=== PATIENT | male | born 1960 | race Caucasian/White ===

== ENCOUNTER 2017-09-11 16:40 | Inpatient (IN) | payer MEDICARE, MEDICAID, SELFPAY ==
[2017-09-11] VITALS (10 sets, daily range): BP systolic 90–116; BP diastolic 31–98; PULSE 123–157; RESP 16–21; TEMP 36.3–36.6; O2SAT 95–99; BMI 37.0; BMI 37.5
--- NOTE | 2017-09-11 16:58 | EKG12_ITS ---
Test Reason : GEN ILLNESS Blood Pressure : / mmHG Vent. Rate : 157 BPM Atrial Rate : 088 BPM P-R Int : 000 ms QRS Dur : 090 ms QT Int : 316 ms P-R-T Axes : 000 -55 030 degrees QTc Int : 510 ms Supraventricular tachycardia Left axis deviation Septal infarct , age undetermined Inferior infarct , age undetermined Abnormal ECG Confirmed by YIMI LANG, DACIA ([id number]), visual effects editor SHIRA HINKLE ([id number]) on 09/13/2017 3:42:38 PM Referred By: SOHAN Confirmed By:DACIA GELLER MD
--- NOTE | 2017-09-11 16:58 | RAD_ITS ---
STUDY: X-RAY CHEST REASON FOR EXAM: Male, 57 years old. Dyspnea. TECHNIQUE: Single AP portable view of the chest. COMPARISON: None. FINDINGS: There is a left jugular Port-A-Cath with its tip at the atriocaval junction. The lungs well-expanded. There is no acute infiltrate or mass. There is linear densities in the right upper lobe with associated surgical clips suggesting prior lung surgery. There is no demonstrated pleural abnormality. Normal size heart. Normal mediastinum and gabe. Normal visualized pulmonary arteries. Normal visualized aortic arch and descending thoracic aorta. The thoracic spine is obscured by the mediastinum. Normal visualized ribs, clavicles, and shoulders. There is no demonstrated abnormality of the visualized soft tissue structures of the upper abdomen. RAD/Chest 1 View (Portable) IMPRESSION: 1. Evidence of prior right upper lobe lung surgery. 2. No evidence of acute pulmonary disease. 3. Left jugular Port-A-Cath. Electronically Signed: Jagjit Allen DO at 17:36 EDT Tel [phone], Service support ,
--- NOTE | 2017-09-11 17:04 | ED.DCSUM_ITS ---
- ER Visit Summary Date of Service: 09/11/17 Chief Complaint: Elevated heart rate, left lower extremity cellulitis History of Present Illness: The patient is a 57 M presenting with redness, swelling left lower extremity. This has been ongoing for the past 2 days. He was seen by Dr. Sahu today and was sent to the ED for further evaluation. His last chemotherapy was August 30, 2017. 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 He denies fever. Denies chest pain or shortness of breath. His heart rate has been elevated. No recent hospital admissions. He has a history of chronic left lower extremity DVT. He had a previous IVC filter which he states has been removed. Physical Examination: HR 155. BP 99/69, RR 16. Patient is afebrile. Alert no acute distress. Pulse ox 97% on room air HEENT exam is unremarkable. Neck is supple. Lungs are clear and equal bilaterally. Heart is regular and tachycardic Abdomen is soft nontender nondistended. Extremities left calf swelling and erythema, palpable DP pulse Skin is warm and dry. No focal neurologic deficit. Remainder of exam is unremarkable. Emergency Department Course and Treatment: Patient was given IV fluids. CBC shows a white count of 15.5, hemoglobin 9.1. Chemistries show sodium 129, glucose 207. Troponin 0.06. Lactic acid is 3.0. Chest x-ray shows no acute process. EKG is sinus tachycardia 157. Heart rate improved to 120s with IV fluids. Ultrasound of the left lower extremity shows diffuse DVT. Study is limited secondary to groin mass. CTA chest was obtained and shows no evidence of PE. He was given Ancef IV and Lovenox subcutaneously. Discussed with the hospitalist for admission. Disposition: Admission Impression: Severe sepsis, left lower extremely cellulitis, left lower extremity DVT, history of liposarcoma This note was generated with Chatterous dictation software. It may contain incorrect words, spelling, and punctuation that were not noted in review of the chart prior to signing ED Disposition - Plan for ED Patient: Chief Complaint: General Illness Referrals: Dru Gao [Primary Care Provider] -
--- NOTE | 2017-09-11 17:07 | NURSING ---
NO OLD EKGS
[2017-09-11] MEDS: 0.9% Normal Saline 1,000 ML 1000 ML IV (17:15)
[2017-09-11 17:30] LABS: Hematocrit 27.8 % (40-54); Hemoglobin 9.1 g/dl (13.0-16.5); Mean Corp Hgb Conc 32.7 g/gl (32-36); Mean Corpuscular Volume 82.5 fL (80-94); Mean Platelet Vol. 10.4 fl (6.2-12.0); Platelet Count 198 K/mm3 (150-450); RBC Distribution Width SD 47.2 fl (35.1-43.9); Red Blood Count 3.37 M/mm3 (4.6-6.2); White Blood Count 15.5 K/mm3 (4.4-11.0)
[2017-09-11 17:32] LABS: Differential Indicated MANUAL DIFF; POSITIVE COUNT YES; POSITIVE DIFFERENTIAL YES; POSITIVE MORPHOLOGY YES
[2017-09-11 17:46] LABS: Anion Gap 9 (5-15); BUN 13 mg/dL (7-18); BUN/Creat Ratio 11.4 RATIO (10-20); Calcium,Total 8.3 mg/dL (8.5-10.1); Chloride 93 mmol/L (98-107); Creatinine, Serum 1.14 mg/dL (0.70-1.30); EST Glomerular Filtration Rate 70 mL/min (>60); Est Glom Filt Rate - Afr Amer 85 mL/min (>60); Estimated Creatinine Clearance 72.93 ml/min; Glucose 207 mg/dL (74-106); Potassium 3.8 mmol/L (3.5-5.1); Sodium Level 129 mmol/L (136-145)
--- NOTE | 2017-09-11 17:47 | US_ITS ---
US Venous Duplex LE Bilat Complete INDICATION: LT LEG REDNESS AND SWELLING COMPARISON: None TECHNIQUE: Ultrasonographic grayscale, Doppler and duplex investigation of the venous structures of the bilateral lower extremities. Doppler waveform analysis. FINDINGS: The examination is markedly limited due to severe leg edema and large left inguinal tumor. Right lower extremity: There is no evidence of thrombus and normal flow and compressibility of the right common femoral vein, the superficial femoral vein, the right popliteal vein, posterior tibial vein and peroneal vein. Left lower extremity: A large tumor is seen in the groin and there is noncompressibility of the left common femoral vein. The greater saphenous vein at the junction is not visualized. The deep femoral vein is not visualized. There is noncompressibility of the proximal and mid superficial femoral vein and the distal superficial femoral vein is not visualized. There is partial compressibility of the left trapezial vein and posterior tibial vein. The peroneal vein is not visualized. US/Venous Duplex Imag/Erik Extrem IMPRESSION: Examination of the left lower extremity is markedly limited due to severe leg edema and a large tumor in the left groin. There is partial compressibility of the left common femoral vein, proximal and mid femoral vein and posterior tibial vein and noncompressibility of the left PT of vein. The distal superficial femoral vein and peroneal vein were not visualized. No evidence of DVT at the right lower extremity. at 1901 Reported and signed by: Melina Rivers MD N.B. : The above information has been verbally conveyed by Melina Rivers MD to Dr Matilde Vitale, Referring Physician, on 09/11/2017 20:34:28 (ET). Electronically Signed: Melina Rivers MD at 19:00 EDT Tel , Service support , N.B. : The above information has been verbally conveyed by Melina Rivers MD to Dr Matilde Vitale, Referring Physician, on 09/11/2017 20:34:28 (ET).
[2017-09-11 18:19] LABS: Lymphocyte 2 % (19-41); Metamyelocyte 4 % (0-1); Monocyte 7 % (0-10); Myelocyte 4 (0-0); Neutrophil-Band 5 % (0-5); Neutrophil-Segmented 78 % (47-70); Total Cells Counted 100 (MANUAL DIFF)
[2017-09-11 18:24] LABS: Absolute Lymphocyte Count 0.31 X10^3/ul (0.83-4.51); Absolute Neutrophil Count 12.8 X10^3/uL (2.0-7.7)
[2017-09-11 18:25] LABS: Anisocytosis RARE; Platelet Estimate ADEQUATE (ADEQ)
[2017-09-11] MEDS: 0.9% Normal Saline 1,000 ML 999 ML IV ×2 (18:25→19:58)
--- NOTE | 2017-09-11 18:30 | CT_ITS ---
CTA Chest WO/W Contrast INDICATION: SENT BY ONCOLOGIST DUE TO BEING TACHY, WEAK, SWELLING L LEG AND REDNESS, CURRENT CHEMO FOR LIPOSARCOMA-LAST CHEMO ON 08-30-17, PT HAS POWER PORT, DIAB COMPARISON: None TECHNIQUE: High resolution axial CT imaging of the chest during intravenous contrast administration, CTA protocol. Multiplanar and MIP 3D reformatted images. 100 mL of Isovue-370 were given intraveniously. Radiation dose optimization technique applied. FINDINGS: There is no evidence of pulmonary arterial filling defect to suggest PE. Aortic arch is unremarkable. The heart size is at the upper limits of normal. There is scarring at the right upper lobe with architectural distortion. Pulmonary micronodules are seen scattered throughout both lungs, measuring 1 cm at the left lung apex, 5 mm in the right lower lobe superiorly, 5 mm at the right lower lobe at the lung base, and 8 mm in the left lower lobe posteriorly and 5 mm in the left posterior costophrenic angle. Findings are concerning for pulmonary metastatic disease. There is no evidence of pneumonia or pleural effusion. There is no evidence of bulky mediastinal or hilar lymphadenopathy. Visualized portions of the upper abdomen demonstrate mild nodular contour of the liver. The osseous structures demonstrate degenerative changes of the thoracic spine with anterior bridging osteophytes. Inferior endplate compression deformity of T12 is noted. No lytic or sclerotic lesion is seen. CT/CTA Chest W/WO Contrast IMPRESSION: Bilateral pulmonary micronodules as detailed above, concerning for pulmonary metastatic disease. No evidence of PE or aortic dissection. No evidence of pneumonia. Right upper lobe scarring. Inferior endplate compression deformity of T12, appears chronic. at 1939 Reported and signed by: Melina Rivers MD Electronically Signed: Melina Rivers MD at 19:38 EDT Tel , Service support ,
[2017-09-11 19:29] LABS: Bacteria 0 SEEN /hpf (None Seen); Mucous, Urine 0 SEEN /hpf (<or=2+); Red Blood Cells-Urine 0 SEEN /hpf (0-5)
[2017-09-11] MEDS: Cefazolin 1 GM/50 ML BAG IV (19:58)
[2017-09-11] MEDS: Enoxaparin 120 MG/0.8 ML Syringe SC (19:59)
[2017-09-11 20:03] LABS: Color, Urine Amber (Yellow); Glucose, Dipstick Normal (Normal); Ketone-Dipstick Negative (Negative); Leukocyte Esterase-Dipstick 25 /ul (Negative); Nitrite-Dipstick Negative (Negative); Occult Blood-Urine 10 /ul (Negative); Protein-Dipstick 30 mg/dl (Negative); Specific Gravity, Urine 1.015 (1.002-1.030); Urine Clarity Clear (Clear); Urine Urobilinogen 4 mg/dl (Normal)
[2017-09-11 20:07] LABS: Urine Bilirubin Dipstick 1 mg/dL (Negative)
[2017-09-11 20:17] LABS: Hyaline Cast 10-25 SEEN /lpf (0-5); Squamous Epithelial Cells - UA 0-5 SEEN /hpf (0-5); White Blood Cells 0-5 SEEN /hpf (0-5)
--- NOTE | 2017-09-11 20:39 | PCM.HP.STD ---
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 The patient is a 57 year old M with past medical history as mentioned above who was referred to the emergency department for evaluation for elevated heart rate and left leg cellulitis by Dr. Sahu after he was seen at his office today for preparation for chemotherapy for undifferentiated liposarcoma of the left groin. The patient stated that his left leg started to swell up 2 days ago, initially started as small red spot with minimal swelling, progressed over the last couple of days very quick to involve the whole left leg. He denied left leg pain. He denies fever or chills. He denied chest pain, palpitation, shortness of breath, dizziness or lightheadedness. 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 He has a history of type 2 diabetes mellitus and he has been on metformin, no hemoglobin A1c available discharge. He had a recent history of extensive DVT of the left lower extremity and he has been on Lovenox shots twice daily. In the emergency department, patient was afebrile, heart rate was in the 150s and yet. To be in sinus tachycardia. Blood pressure was borderline but slightly improved after loss of IV fluids. His routine blood work is remarkable for leukocytosis, hemoglobin of 9.1 g/dL, sodium of 129. His lactic acid was 3. Troponin was negative. Urinalysis revealed no evidence of acute cystitis. EKG revealed sinus tachycardia with heart rate of 150s. X-ray showed no acute infiltrate, consolidation or effusion. CTA of the chest revealed bilateral pulmonary micronodules consistent with metastatic lung disease without evidence of PE or dissection. He is being admitted for severe sepsis secondary to acute cellulitis of the left leg. Past Medical History Past Medical History (Chronic Problems): Chronic Problems Chronic anemia (Chronic) Type 2 diabetes mellitus (Chronic) Deep vein thrombosis (DVT) of left lower extremity (Chronic) Liposarcoma of the left groin (Chronic) Allergies Iodinated Contrast- Oral and IV Dye [DYEE] Adverse Reaction (Verified 09/11/17 16:42) Nausea Home Medications: Ambulatory Orders Medication Instructions Recorded Cholecalciferol (Vitamin D3) 1,000 unit PO DAILY 09/11/17 [Vitamin D3] Duloxetine Hcl [Cymbalta] 90 mg PO DAILY 09/11/17 Enoxaparin Sodium [Lovenox] 120 mg SQ Q12H 09/11/17 Gabapentin [Neurontin] 600 mg PO TIDCM 09/11/17 Loratadine [Claritin] 10 mg PO DAILY PRN PRN 09/11/17 Metformin HCl [Glucophage Xr] 750 mg PO DAILY 09/11/17 Methadone HCl [Dolophine] 7.5 mg PO Q12H PRN 09/11/17 Ondansetron [Zofran] 8 mg PO Q8H PRN PRN 09/11/17 Oxycodone [Oxyir] 10 mg PO Q4H PRN PRN 09/11/17 Surgical History: - - Rotator cuff surgery. Biopsy of the left groin mass. Psychiatric History: Depression Smoking Status: Former smoker Alcohol: None Drugs: None - *Family History Maternal History Items: No pertinent history Paternal History Items: No pertinent history Review of Systems Constitutional: Denies: Anorexia, Chills, Fever, Weakness Eyes: Denies: Blurred vision, Double vision, Drainage, Redness HEENT: Denies: Difficulty Hearing, Ear Pain, Eye Pain, Nasal Congestion, Sore Throat Cardiovascular: Denies: Chest Pain, Chest Pressure, Chest Tightness, Heaviness, Light Headedness, Palpitations, Syncope Respiratory: Denies: Cough, Pleuritic Pain, Shortness of Breath, Sputum production, Wheezing Gastrointestinal: Denies: Abdominal Pain, Constipation, Diarrhea, Nausea, Vomiting Genitourinary: Denies: Dysuria, Frequency, Hematuria Musculoskeletal: Denies: Arm Pain, Back Pain, Foot Pain Skin: Reports: -. Denies: Dryness, Rash Neurological: Denies: Balance problems, Double vision, Change in Speech, Focal weakness, Headaches, Incoordination Psychiatric: Reports: Depression. Denies: Anxiety Endocrine: Denies: Change in Body Habitus, Polydipsia VTE Information - Inpt Only VTE Present on Admission: No VTE Mechan Device Prophylaxis: None VTE Pharm Prophylaxis ordered?: No Patient Problems: Active and Suspected Problems Tachycardia (Acute) Severe sepsis (Acute) Left leg cellulitis (Acute) - Physical Exam General: Alert, Oriented x3, Cooperative, No apparent distress HEENT: Atraumatic, PERRLA, EOMI Oral: Moist Mucosa, No Gingival or Mucosal Lesions/ Ulcerations Neck: Supple, No JVD, Negative Carotid Bruits, Trachea Midline, Thyroid Normal Size and Texture Lungs: Clear to auscultation, No rhonchi, No wheeze, No rales, Diminished Cardiovascular: Regular rate, Regular Rhythm, Normal S1, Normal S2, PMI Normal, Tachycardic Abdomen: Bowel Sounds Present, Soft, Non Tender, Non-Distended, No Hepato-splenomegaly, Obese Extremities: No clubbing, No cyanosis, Edema - Trace edema., - - Left leg: Erythema and swelling from just below left knee down to the left ankle, hot to palpation. Nontender. Skin: - - Area of superficial abrasion on the left groin measuring about 4 x 9 cm, foul-smelling. Lymphatic: No Cervical, Supraclavicular, or Inguinal Adenopathy Neurological: Cranial nerves II-XII grossly intact, Motor Exam 5/5 strength throughout Psych/Mental Status: Normal Affect, Appropriate, Alert and oriented to time, place, person, mood and affect Vital Signs Temp Pulse Resp BP Pulse Ox 97.3 F L 141 H 21 H 116/98 H 97 09/11/17 16:42 09/11/17 19:47 09/11/17 19:47 09/11/17 19:47 09/11/17 19:47 Laboratory Tests 09/11/17 09/11/17 09/11/17 Range/Units 19:20 17:12 17:12 WBC (4.4-11.0) K/mm3 RBC (4.6-6.2) M/mm3 Hgb (13.0-16.5) g/dl Hct (40-54) % MCV (80-94) fL MCH (27.0-32.0) pg MCHC (32-36) g/gl RDW (11.6-14.6) % RDW Differential (35.1-43.9) fl Plt Count (150-450) K/mm3 MPV (6.2-12.0) fl Neut % (Auto) Absolute Neuts (auto) (2.0-7.7) X10^3/uL Absolute Lymphs (auto) (0.83-4.51) X10^3/ul Total Counted (MANUAL DIFF) Neutrophils % (Manual) (47-70) % Band Neutrophils % (0-5) % Lymphocytes % (Manual) (19-41) % Monocytes % (Manual) (0-10) % Metamyelocytes % (0-1) % Myelocytes % (0-0) Differential Comment Diff Path Review Platelet Estimate (ADEQ) Anisocytosis Sodium 129 L (136-145) mmol/L Potassium 3.8 (3.5-5.1) mmol/L Chloride 93 L (98-107) mmol/L Carbon Dioxide 27.0 (21.0-32.0) mmol/L Anion Gap 9 (5-15) BUN 13 (7-18) mg/dL Creatinine 1.14 (0.70-1.30) mg/dL Estim Creat Clear Calc 72.93 ml/min Est GFR (MDRD) Af Amer 85 (>60) mL/min Est GFR (MDRD) Non-Af 70 (>60) mL/min BUN/Creatinine Ratio 11.4 (10-20) RATIO Glucose 207 H (74-106) mg/dL Lactic Acid 3.0 H (0.4-2.0) mmol/L Calcium 8.3 L (8.5-10.1) mg/dL Troponin I 0.06 (<0.06) ng/mL Urine Color Shruthi (Yellow) Urine Clarity Clear (Clear) Urine pH 6.0 (5.0 - 8.0) Ur Specific [place] 1.015 (1.002-1.030) Urine Protein 30 H (Negative) mg/dl Urine Glucose (UA) Normal (Normal) mg/dl Urine Ketones Negative (Negative) mg/dl Urine Occult Blood 10 H (Negative) /ul Urine Nitrite Negative (Negative) Urine Bilirubin 1 H (Negative) mg/dL Urine Urobilinogen 4 H (Normal) mg/dl Ur Leukocyte Esterase 25 H (Negative) /ul Urine RBC 0 SEEN (0-5) /hpf Urine WBC 0-5 SEEN (0-5) /hpf Ur Squamous Epith Cells 0-5 SEEN (0-5) /hpf Urine Bacteria 0 SEEN (None Seen) /hpf Hyaline Casts 10-25 SEEN (0-5) /lpf Urine Mucus 0 SEEN (<or=2+) /hpf 09/11/17 Range/Units 17:12 WBC 15.5 H (4.4-11.0) K/mm3 RBC 3.37 L (4.6-6.2) M/mm3 Hgb 9.1 L (13.0-16.5) g/dl Hct 27.8 L (40-54) % MCV 82.5 (80-94) fL MCH 27.0 (27.0-32.0) pg MCHC 32.7 (32-36) g/gl RDW 16.0 H (11.6-14.6) % RDW Differential 47.2 H (35.1-43.9) fl Plt Count 198 (150-450) K/mm3 MPV 10.4 (6.2-12.0) fl Neut % (Auto) Not Reportable Absolute Neuts (auto) 12.8 H (2.0-7.7) X10^3/uL Absolute Lymphs (auto) 0.31 L (0.83-4.51) X10^3/ul Total Counted 100 (MANUAL DIFF) Neutrophils % (Manual) 78 H (47-70) % Band Neutrophils % 5 (0-5) % Lymphocytes % (Manual) 2 L (19-41) % Monocytes % (Manual) 7 (0-10) % Metamyelocytes % 4 H (0-1) % Myelocytes % 4 H (0-0) Differential Comment SEE COMMENT Diff Path Review May foll Platelet Estimate ADEQUATE (ADEQ) Anisocytosis RARE Sodium (136-145) mmol/L Potassium (3.5-5.1) mmol/L Chloride (98-107) mmol/L Carbon Dioxide (21.0-32.0) mmol/L Anion Gap (5-15) BUN (7-18) mg/dL Creatinine (0.70-1.30) mg/dL Estim Creat Clear Calc ml/min Est GFR (MDRD) Af Amer (>60) mL/min Est GFR (MDRD) Non-Af (>60) mL/min BUN/Creatinine Ratio (10-20) RATIO Glucose (74-106) mg/dL Lactic Acid (0.4-2.0) mmol/L Calcium (8.5-10.1) mg/dL Troponin I (<0.06) ng/mL Urine Color (Yellow) Urine Clarity (Clear) Urine pH (5.0 - 8.0) Ur Specific [place] (1.002-1.030) Urine Protein (Negative) mg/dl Urine Glucose (UA) (Normal) mg/dl Urine Ketones (Negative) mg/dl Urine Occult Blood (Negative) /ul Urine Nitrite (Negative) Urine Bilirubin (Negative) mg/dL Urine Urobilinogen (Normal) mg/dl Ur Leukocyte Esterase (Negative) /ul Urine RBC (0-5) /hpf Urine WBC (0-5) /hpf Ur Squamous Epith Cells (0-5) /hpf Urine Bacteria (None Seen) /hpf Hyaline Casts (0-5) /lpf Urine Mucus (<or=2+) /hpf Clinical Impression(s) from Imaging Studies Chest X-Ray 09/11/17 16:58 IMPRESSION: 1. Evidence of prior right upper lobe lung surgery. 2. No evidence of acute pulmonary disease. 3. Left jugular Port-A-Cath. Electronically Signed: Jagjit Allen DO at 17:36 EDT Tel [phone], Service support , Venous Duplex 09/11/17 17:47 IMPRESSION: Examination of the left lower extremity is markedly limited due to severe leg edema and a large tumor in the left groin. There is partial compressibility of the left common femoral vein, proximal and mid femoral vein and posterior tibial vein and noncompressibility of the left PT of vein. The distal superficial femoral vein and peroneal vein were not visualized. No evidence of DVT at the right lower extremity. at 1901 Reported and signed by: Melina Rivers MD N.B. : The above information has been verbally conveyed by Melina Rivers MD to Dr Matilde Vitale, Referring Physician, on 09/11/2017 20:34:28 (ET). Electronically Signed: Melina Rivers MD at 19:00 EDT Tel , Service support , N.B. : The above information has been verbally conveyed by Melina Rivers MD to Dr Matilde Vitale, Referring Physician, on 09/11/2017 20:34:28 (ET). Chest CTA 09/11/17 18:30 IMPRESSION: Bilateral pulmonary micronodules as detailed above, concerning for pulmonary metastatic disease. No evidence of PE or aortic dissection. No evidence of pneumonia. Right upper lobe scarring. Inferior endplate compression deformity of T12, appears chronic. at 1939 Reported and signed by: Melina Rivers MD Electronically Signed: Melina Rivers MD at 19:38 EDT Tel , Service support , Assessment/Plan Active and Suspected Problems Tachycardia (Acute) Severe sepsis (Acute) Left leg cellulitis (Acute) This is a 57 years old male patient referred to the emergency department by his oncologist because of left leg cellulitis and elevated heart rate, found to have severe sepsis secondary to acute cellulitis of the left leg. #1 acute left leg cellulitis/severe sepsis: Patient is tachycardic, blood pressure stable, afebrile. Lactic acid is elevated. Blood culture sent, received 1 dose of IV cefazolin. Plan: Admit to PCU, cardiac monitoring, continue IV fluids, urine culture, wound culture from the left groin, start IV Unasyn, MRSA nasal screening, repeat lactic acid in 3 hours, repeat CBC and BMP tomorrow morning, PT OT evaluation and treatment. #2 tachycardia: On EKG, it seemed to be sinus tachycardia. Heart rate slightly improved after bolus of IV fluids. Plan: Cardiac monitoring, continue IV fluids, repeat EKG tomorrow morning, TSH. #3 hyponatremia: It is not clear if this is acute or chronic. Could be due to SIADH secondary to liposarcoma. Plan for IV fluids with normal saline, serum was negative, urine was negative, urine sodium, urine chloride, repeat BMP tomorrow morning. 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 He is following up with Dr. Sahu. #5 chronic anemia: Secondary to cancer and chemotherapy. Hemoglobin is 9.1 g/dL, stable, no evidences of active bleeding. No indication for transfusion. #6 type 2 diabetes mellitus: ADA diet, Accu-Cheks, insulin sliding scale, hold metformin. #7 history of extensive left lower extremity DVT: Continue therapeutic Lovenox twice daily. #8 DVT prophylaxis: He will be on therapeutic Lovenox twice daily. This note was generated with [employer] dictation software. It may contain incorrect words, spelling, and punctuation that were not noted in checking the note before signing. Code Visit Inpatient E&M: 82376 Init Hosp L3
--- NOTE | 2017-09-11 20:48 | HP.PCM_ITS ---
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 The patient is a 57 year old M with past medical history as mentioned above who was referred to the emergency department for evaluation for elevated heart rate and left leg cellulitis by Dr. Sahu after he was seen at his office today for preparation for chemotherapy for undifferentiated liposarcoma of the left groin. The patient stated that his left leg started to swell up 2 days ago, initially started as small red spot with minimal swelling, progressed over the last couple of days very quick to involve the whole left leg. He denied left leg pain. He denies fever or chills. He denied chest pain, palpitation, shortness of breath, dizziness or lightheadedness. 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 He has a history of type 2 diabetes mellitus and he has been on metformin, no hemoglobin A1c available discharge. He had a recent history of extensive DVT of the left lower extremity and he has been on Lovenox shots twice daily. In the emergency department, patient was afebrile, heart rate was in the 150s and yet. To be in sinus tachycardia. Blood pressure was borderline but slightly improved after loss of IV fluids. His routine blood work is remarkable for leukocytosis, hemoglobin of 9.1 g/dL, sodium of 129. His lactic acid was 3. Troponin was negative. Urinalysis revealed no evidence of acute cystitis. EKG revealed sinus tachycardia with heart rate of 150s. X-ray showed no acute infiltrate, consolidation or effusion. CTA of the chest revealed bilateral pulmonary micronodules consistent with metastatic lung disease without evidence of PE or dissection. He is being admitted for severe sepsis secondary to acute cellulitis of the left leg. Past Medical History Past Medical History (Chronic Problems): Chronic Problems Chronic anemia (Chronic) Type 2 diabetes mellitus (Chronic) Deep vein thrombosis (DVT) of left lower extremity (Chronic) Liposarcoma of the left groin (Chronic) Allergies Iodinated Contrast- Oral and IV Dye [DYEE] Adverse Reaction (Verified 09/11/17 16:42) Nausea Home Medications: Ambulatory Orders Medication Instructions Recorded Cholecalciferol (Vitamin D3) 1,000 unit PO DAILY 09/11/17 [Vitamin D3] Duloxetine Hcl [Cymbalta] 90 mg PO DAILY 09/11/17 Enoxaparin Sodium [Lovenox] 120 mg SQ Q12H 09/11/17 Gabapentin [Neurontin] 600 mg PO TIDCM 09/11/17 Loratadine [Claritin] 10 mg PO DAILY PRN PRN 09/11/17 Metformin HCl [Glucophage Xr] 750 mg PO DAILY 09/11/17 Methadone HCl [Dolophine] 7.5 mg PO Q12H PRN 09/11/17 Ondansetron [Zofran] 8 mg PO Q8H PRN PRN 09/11/17 Oxycodone [Oxyir] 10 mg PO Q4H PRN PRN 09/11/17 Surgical History: - - Rotator cuff surgery. Biopsy of the left groin mass. Psychiatric History: Depression Smoking Status: Former smoker Alcohol: None Drugs: None - *Family History Maternal History Items: No pertinent history Paternal History Items: No pertinent history Review of Systems Constitutional: Denies: Anorexia, Chills, Fever, Weakness Eyes: Denies: Blurred vision, Double vision, Drainage, Redness HEENT: Denies: Difficulty Hearing, Ear Pain, Eye Pain, Nasal Congestion, Sore Throat Cardiovascular: Denies: Chest Pain, Chest Pressure, Chest Tightness, Heaviness, Light Headedness, Palpitations, Syncope Respiratory: Denies: Cough, Pleuritic Pain, Shortness of Breath, Sputum production, Wheezing Gastrointestinal: Denies: Abdominal Pain, Constipation, Diarrhea, Nausea, Vomiting Genitourinary: Denies: Dysuria, Frequency, Hematuria Musculoskeletal: Denies: Arm Pain, Back Pain, Foot Pain Skin: Reports: -. Denies: Dryness, Rash Neurological: Denies: Balance problems, Double vision, Change in Speech, Focal weakness, Headaches, Incoordination Psychiatric: Reports: Depression. Denies: Anxiety Endocrine: Denies: Change in Body Habitus, Polydipsia VTE Information - Inpt Only VTE Present on Admission: No VTE Mechan Device Prophylaxis: None VTE Pharm Prophylaxis ordered?: No Patient Problems: Active and Suspected Problems Tachycardia (Acute) Severe sepsis (Acute) Left leg cellulitis (Acute) - Physical Exam General: Alert, Oriented x3, Cooperative, No apparent distress HEENT: Atraumatic, PERRLA, EOMI Oral: Moist Mucosa, No Gingival or Mucosal Lesions/ Ulcerations Neck: Supple, No JVD, Negative Carotid Bruits, Trachea Midline, Thyroid Normal Size and Texture Lungs: Clear to auscultation, No rhonchi, No wheeze, No rales, Diminished Cardiovascular: Regular rate, Regular Rhythm, Normal S1, Normal S2, PMI Normal, Tachycardic Abdomen: Bowel Sounds Present, Soft, Non Tender, Non-Distended, No Hepato- splenomegaly, Obese Extremities: No clubbing, No cyanosis, Edema - Trace edema., - - Left leg: Erythema and swelling from just below left knee down to the left ankle, hot to palpation. Nontender. Skin: - - Area of superficial abrasion on the left groin measuring about 4 x 9 cm, foul-smelling. Lymphatic: No Cervical, Supraclavicular, or Inguinal Adenopathy Neurological: Cranial nerves II-XII grossly intact, Motor Exam 5/5 strength throughout Psych/Mental Status: Normal Affect, Appropriate, Alert and oriented to time, place, person, mood and affect Vital Signs Temp Pulse Resp BP Pulse Ox 97.3 F L 141 H 21 H 116/98 H 97 09/11/17 16:42 09/11/17 19:47 09/11/17 19:47 09/11/17 19:47 09/11/17 19:47 Laboratory Tests 3 09/11/17 09/11/17 09/11/17 Range/Units 19:20 17:12 17:12 WBC (4.4-11.0) K/mm3 RBC (4.6-6.2) M/mm3 Hgb (13.0-16.5) g/dl Hct (40-54) % MCV (80-94) fL MCH (27.0-32.0) pg MCHC (32-36) g/gl RDW (11.6-14.6) % RDW Differential (35.1-43.9) fl Plt Count (150-450) K/mm3 MPV (6.2-12.0) fl Neut % (Auto) Absolute Neuts (auto) (2.0-7.7) X10^3/uL Absolute Lymphs (auto) (0.83-4.51) X10^3/ul Total Counted (MANUAL DIFF) Neutrophils % (Manual) (47-70) % Band Neutrophils % (0-5) % Lymphocytes % (Manual) (19-41) % Monocytes % (Manual) (0-10) % Metamyelocytes % (0-1) % Myelocytes % (0-0) Differential Comment Diff Path Review Platelet Estimate (ADEQ) Anisocytosis Sodium 129 L (136-145) mmol/L Potassium 3.8 (3.5-5.1) mmol/L Chloride 93 L (98-107) mmol/L Carbon Dioxide 27.0 (21.0-32.0) mmol/L Anion Gap 9 (5-15) BUN 13 (7-18) mg/dL Creatinine 1.14 (0.70-1.30) mg/dL Estim Creat Clear Calc 72.93 ml/min Est GFR (MDRD) Af Amer 85 (>60) mL/min Est GFR (MDRD) Non-Af 70 (>60) mL/min BUN/Creatinine Ratio 11.4 (10-20) RATIO Glucose 207 H (74-106) mg/dL Lactic Acid 3.0 H (0.4-2.0) mmol/L Calcium 8.3 L (8.5-10.1) mg/dL Troponin I 0.06 (<0.06) ng/mL Urine Color Shruthi (Yellow) Urine Clarity Clear (Clear) Urine pH 6.0 (5.0 - 8.0) Ur Specific Bigfoot 1.015 (1.002-1.030) Urine Protein 30 H (Negative) mg/dl Urine Glucose (UA) Normal (Normal) mg/dl Urine Ketones Negative (Negative) mg/dl Urine Occult Blood 10 H (Negative) /ul Urine Nitrite Negative (Negative) Urine Bilirubin 1 H (Negative) mg/dL Urine Urobilinogen 4 H (Normal) mg/dl Ur Leukocyte Esterase 25 H (Negative) /ul Urine RBC 0 SEEN (0-5) /hpf Urine WBC 0-5 SEEN (0-5) /hpf Ur Squamous Epith Cells 0-5 SEEN (0-5) /hpf Urine Bacteria 0 SEEN (None Seen) /hpf Hyaline Casts 10-25 SEEN (0-5) /lpf Urine Mucus 0 SEEN (<or=2+) /hpf 3 /06/30 Range/Units 17:12 WBC 15.5 H (4.4-11.0) K/mm3 RBC 3.37 L (4.6-6.2) M/mm3 Hgb 9.1 L (13.0-16.5) g/dl Hct 27.8 L (40-54) % MCV 82.5 (80-94) fL MCH 27.0 (27.0-32.0) pg MCHC 32.7 (32-36) g/gl RDW 16.0 H (11.6-14.6) % RDW Differential 47.2 H (35.1-43.9) fl Plt Count 198 (150-450) K/mm3 MPV 10.4 (6.2-12.0) fl Neut % (Auto) Not Reportable Absolute Neuts (auto) 12.8 H (2.0-7.7) X10^3/uL Absolute Lymphs (auto) 0.31 L (0.83-4.51) X10^3/ul Total Counted 100 (MANUAL DIFF) Neutrophils % (Manual) 78 H (47-70) % Band Neutrophils % 5 (0-5) % Lymphocytes % (Manual) 2 L (19-41) % Monocytes % (Manual) 7 (0-10) % Metamyelocytes % 4 H (0-1) % Myelocytes % 4 H (0-0) Differential Comment SEE COMMENT Diff Path Review May foll Platelet Estimate ADEQUATE (ADEQ) Anisocytosis RARE Sodium (136-145) mmol/L Potassium (3.5-5.1) mmol/L Chloride (98-107) mmol/L Carbon Dioxide (21.0-32.0) mmol/L Anion Gap (5-15) BUN (7-18) mg/dL Creatinine (0.70-1.30) mg/dL Estim Creat Clear Calc ml/min Est GFR (MDRD) Af Amer (>60) mL/min Est GFR (MDRD) Non-Af (>60) mL/min BUN/Creatinine Ratio (10-20) RATIO Glucose (74-106) mg/dL Lactic Acid (0.4-2.0) mmol/L Calcium (8.5-10.1) mg/dL Troponin I (<0.06) ng/mL Urine Color (Yellow) Urine Clarity (Clear) Urine pH (5.0 - 8.0) Ur Specific Bigfoot (1.002-1.030) Urine Protein (Negative) mg/dl Urine Glucose (UA) (Normal) mg/dl Urine Ketones (Negative) mg/dl Urine Occult Blood (Negative) /ul Urine Nitrite (Negative) Urine Bilirubin (Negative) mg/dL Urine Urobilinogen (Normal) mg/dl Ur Leukocyte Esterase (Negative) /ul Urine RBC (0-5) /hpf Urine WBC (0-5) /hpf Ur Squamous Epith Cells (0-5) /hpf Urine Bacteria (None Seen) /hpf Hyaline Casts (0-5) /lpf Urine Mucus (<or=2+) /hpf Clinical Impression(s) from Imaging Studies Chest X-Ray 09/11/17 16:58 IMPRESSION: 1. Evidence of prior right upper lobe lung surgery. 2. No evidence of acute pulmonary disease. 3. Left jugular Port-A-Cath. Electronically Signed: Jagjit Allen DO at 17:36 EDT Tel [phone], Service support , Venous Duplex 09/11/17 17:47 IMPRESSION: Examination of the left lower extremity is markedly limited due to severe leg edema and a large tumor in the left groin. There is partial compressibility of the left common femoral vein, proximal and mid femoral vein and posterior tibial vein and noncompressibility of the left PT of vein. The distal superficial femoral vein and peroneal vein were not visualized. No evidence of DVT at the right lower extremity. at 1901 Reported and signed by: Melina Rivers MD N.B. : The above information has been verbally conveyed by Melina Rivers MD to Dr Matilde Vitale, Referring Physician, on 09/11/2017 20:34:28 (ET). Electronically Signed: Melina Rivers MD at 19:00 EDT Tel , Service support , N.B. : The above information has been verbally conveyed by Melina Rivers MD to Dr Matilde Vitale, Referring Physician, on 09/11/2017 20:34:28 (ET). Chest CTA 09/11/17 18:30 IMPRESSION: Bilateral pulmonary micronodules as detailed above, concerning for pulmonary metastatic disease. No evidence of PE or aortic dissection. No evidence of pneumonia. Right upper lobe scarring. Inferior endplate compression deformity of T12, appears chronic. at 1939 Reported and signed by: Melina Rivers MD Electronically Signed: Melina Rivers MD at 19:38 EDT Tel , Service support , Assessment/Plan Active and Suspected Problems Tachycardia (Acute) Severe sepsis (Acute) Left leg cellulitis (Acute) This is a 57 years old male patient referred to the emergency department by his oncologist because of left leg cellulitis and elevated heart rate, found to have severe sepsis secondary to acute cellulitis of the left leg. #1 acute left leg cellulitis/severe sepsis: Patient is tachycardic, blood pressure stable, afebrile. Lactic acid is elevated. Blood culture sent, received 1 dose of IV cefazolin. Plan: Admit to PCU, cardiac monitoring, continue IV fluids, urine culture, wound culture from the left groin, start IV Unasyn, MRSA nasal screening, repeat lactic acid in 3 hours, repeat CBC and BMP tomorrow morning, PT OT evaluation and treatment. #2 tachycardia: On EKG, it seemed to be sinus tachycardia. Heart rate slightly improved after bolus of IV fluids. Plan: Cardiac monitoring, continue IV fluids , repeat EKG tomorrow morning, TSH. #3 hyponatremia: It is not clear if this is acute or chronic. Could be due to SIADH secondary to liposarcoma. Plan for IV fluids with normal saline, serum was negative, urine was negative, urine sodium, urine chloride, repeat BMP tomorrow morning. 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 He is following up with Dr. Sahu. #5 chronic anemia: Secondary to cancer and chemotherapy. Hemoglobin is 9.1 g/dL , stable, no evidences of active bleeding. No indication for transfusion. #6 type 2 diabetes mellitus: ADA diet, Accu-Cheks, insulin sliding scale, hold metformin. #7 history of extensive left lower extremity DVT: Continue therapeutic Lovenox twice daily. #8 DVT prophylaxis: He will be on therapeutic Lovenox twice daily. This note was generated with [employer] dictation software. It may contain incorrect words, spelling, and punctuation that were not noted in checking the note before signing. Code Visit Inpatient E&M: 10239 Init Hosp L3
[2017-09-11 21:07] LABS: International Normalized Ratio 1.2; Prothrombin Time (Protime)PT. 15.6 SECONDS (11.7-14.9)
[2017-09-11 21:20] LABS: Reflex Lactate? Y
[2017-09-11] MEDS: oxyCODONE 5 MG Tablet 10 MG PO (21:21)
[2017-09-11] MEDS: Lactated Ringers 1,000 ML 125 ML IV (21:41)
[2017-09-11 22:10] LABS: Osmolality, Serum 274 mOsm/KG (275-295)
[2017-09-11 22:32] LABS: Lactic Acid 1.7 mmol/L (0.4-2.0)
[2017-09-11 22:41] LABS: Thyroid Stim Hormone (TSH) 1.62 uIU/mL (0.358-3.74)
[2017-09-11 23:11] LABS: Urine Sodium 15 mmol/L (Not Establ.)
[2017-09-11 23:13] LABS: Urine Chloride 36 mmol/L (Not Establ.)
[2017-09-11 23:17] LABS: Osmolality, Urine 543 mOsm/KG
--- NOTE | 2017-09-11 23:23 | EKG12_ITS ---
Test Reason : TACHY Blood Pressure : / mmHG Vent. Rate : 150 BPM Atrial Rate : 150 BPM P-R Int : 192 ms QRS Dur : 094 ms QT Int : 328 ms P-R-T Axes : 000 -57 020 degrees QTc Int : 518 ms Sinus tachycardia Left axis deviation Septal infarct , age undetermined Abnormal ECG When compared with ECG of 11-SEP-2017 17:13, MANUAL COMPARISON REQUIRED, DATA IS UNCONFIRMED Confirmed by YIMI LANG, DACIA ([id number]), photographic editor SHIRA HINKLE ([id number]) on 09/16/2017 2:35:32 PM Referred By: DR ARMAS Confirmed By:DACIA GELLER MD
[2017-09-11] MEDS: Senna/Docusate Sodium 1 Tablet 2 TABLET PO (23:51)
[2017-09-11] MEDS: 0.9% NaCl VAD Flush 10 ML IV (23:53)
[2017-09-12] VITALS (35 sets, daily range): BP systolic 84–122; BP diastolic 56–81; PULSE 93–152; RESP 11–26; TEMP 36.3–37.1; O2SAT 90–99
[2017-09-12 00:51] LABS: Bedside Glucose 160 mg/dL (70-110)
[2017-09-12 01:56] LABS: M R Staph aureus DNA By PCR Negative (Negative); Probe Check PASS; Specimen Processing Control PASS
[2017-09-12] MEDS: oxyCODONE 5 MG Tablet 10 MG PO ×5 (03:20→20:58)
[2017-09-12] MEDS: 0.9% NaCl VAD Flush 10 ML IV ×2 (04:48)
[2017-09-12 05:15] LABS: Anion Gap 8 (5-15); BUN 10 mg/dL (7-18); BUN/Creat Ratio 11.8 RATIO (10-20); Calcium,Total 7.6 mg/dL (8.5-10.1); Chloride 97 mmol/L (98-107); Creatinine, Serum 0.85 mg/dL (0.70-1.30); EST Glomerular Filtration Rate 98 mL/min (>60); Est Glom Filt Rate - Afr Amer 119 mL/min (>60); Estimated Creatinine Clearance 97.81 ml/min; Glucose 169 mg/dL (74-106); Potassium 3.8 mmol/L (3.5-5.1); Sodium Level 133 mmol/L (136-145)
[2017-09-12 05:22] LABS: Hematocrit 24.6 % (40-54); Mean Corp Hgb Conc 32.5 g/gl (32-36); Mean Corpuscular Hgb 27.1 pg (27.0-32.0); Mean Corpuscular Volume 83.4 fL (80-94); Mean Platelet Vol. 10.6 fl (6.2-12.0); Platelet Count 206 K/mm3 (150-450); RBC Distribution Width CV 16.4 % (11.6-14.6); RBC Distribution Width SD 48.6 fl (35.1-43.9); Red Blood Count 2.95 M/mm3 (4.6-6.2); White Blood Count 13.5 K/mm3 (4.4-11.0)
[2017-09-12 05:24] LABS: Differential Indicated MANUAL DIFF; POSITIVE COUNT YES; POSITIVE DIFFERENTIAL YES; POSITIVE MORPHOLOGY YES
[2017-09-12] MEDS: Lactated Ringers 1,000 ML 125 ML IV ×2 (05:43→11:56)
--- NOTE | 2017-09-12 05:55 | EKG12_ITS ---
Test Reason : AM EKG Blood Pressure : / mmHG Vent. Rate : 147 BPM Atrial Rate : 144 BPM P-R Int : 000 ms QRS Dur : 096 ms QT Int : 328 ms P-R-T Axes : 000 -54 007 degrees QTc Int : 513 ms Supraventricular tachycardia Left axis deviation Abnormal ECG When compared with ECG of 11-SEP-2017 23:32, MANUAL COMPARISON REQUIRED, DATA IS UNCONFIRMED Confirmed by YIMI LANG, DACIA ([id number]), editorial writer SHIRA HINKLE ([id number]) on 09/16/2017 2:34:24 PM Referred By: DR ARMAS Confirmed By:DACIA GELLER MD
[2017-09-12 06:12] LABS: Absolute Nucleated RBC Count 0.12 10^3/uL (0-5); NRBC Flagged by Analyzer 0.9 % (0-5)
[2017-09-12 06:46] LABS: Lymphocyte 9 % (19-41); Metamyelocyte 2 % (0-1); Monocyte 11 % (0-10); Myelocyte 1 (0-0); Neutrophil-Band 7 % (0-5); Neutrophil-Segmented 70 % (47-70); Total Cells Counted 100 (MANUAL DIFF)
[2017-09-12 06:48] LABS: Absolute Lymphocyte Count 1.22 X10^3/ul (0.83-4.51); Absolute Neutrophil Count 10.8 X10^3/uL (2.0-7.7); Lymphocyte # 1.22 X10^3/ul (4.0)
[2017-09-12 06:50] LABS: Anisocytosis 1+; Polychromasia RARE
[2017-09-12 07:06] LABS: Bedside Glucose 166 mg/dL (70-110)
[2017-09-12] MEDS: Gabapentin 600 MG Tablet PO ×3 (08:17→16:22)
[2017-09-12] MEDS: Senna/Docusate Sodium 1 Tablet 2 TABLET PO (08:17)
[2017-09-12] MEDS: DULoxetine Hcl 30 MG Capsule 90 MG PO (08:18)
[2017-09-12] MEDS: Glucerna Shake 120 ML LIQUID PO ×3 (08:22→16:22)
[2017-09-12] MEDS: Enoxaparin 120 MG/0.8 ML Syringe SC ×2 (08:23→21:45)
[2017-09-12 11:20] LABS: Bedside Glucose 181 mg/dL (70-110)
[2017-09-12] MEDS: 0.9% Normal Saline 1,000 ML 999 ML IV (11:56)
[2017-09-12] MEDS: dilTIAZem 25 MG/5 ML Vial 10 MG IV BOLUS (13:36)
--- NOTE | 2017-09-12 13:56 | NURSING ---
wound photo: left groin
--- NOTE | 2017-09-12 14:50 | PCM.PROGNOTE ---
<Scooter Winter - Last Filed: 09/12/17 15:16> Patient Problems: Active and Suspected Problems Tachycardia (Acute) Severe sepsis (Acute) Left leg cellulitis (Acute) Subjective: Pt feels somewhat groggy this morning, slow to answer questions, but answering appropriately. He cannot feel his heart racing or pounding. He denies SOB, CP, pressure, palp, LH, dizziness. He has significant pain in his LLE. He has been compliant with home lovenox. He was treated with Abx for the cellulitis recently, after which it came back - he cannot remember what he was on. - Physical Exam General: Alert, Oriented x3, Cooperative HEENT: Atraumatic, PERRLA, EOMI, Normocephalic Neck: Supple, No JVD, Negative Carotid Bruits Lungs: Clear to auscultation, Normal air movement Cardiovascular: No murmurs, Tachycardic Abdomen: Bowel Sounds Present, Soft, Non Tender Extremities: No edema, Capillary Refill Less than 3 Seconds, Edema, - Skin: No rashes, No breakdown, - - left lower leg cellulitis changes, rendess, warmth, edema, nontender to palp. Musculoskeletal: No Tenderness to Palpation of Joints or Extremities Neurological: Cranial nerves II-XII grossly intact Psych/Mental Status: Normal Affect, Appropriate, Alert and oriented to time, place, person, mood and affect Vital Signs Temp Pulse Resp BP Pulse Ox 97.5 F L 148 H 14 94/68 98 09/12/17 14:00 09/12/17 14:00 09/12/17 14:00 09/12/17 14:00 09/12/17 14:00 Oxygen Delivery Method Room Air Weight: 118.5 kg Body Mass Index (BMI) 37.5 Intake and Output for Last 24 Hours 09/10/17 09/11/17 09/12/17 23:59 23:59 23:59 Intake Total 2995 / 2995 Output Total 700 / 700 Balance 2295 / 2295 Microbiology Past 72 Hours 09/11/17 23:50 Gram Stain - Final Wound - Groin Laboratory Tests Past 24 Hrs 09/11/17 09/11/17 09/11/17 21:50 21:50 23:50 WBC RBC Hgb Hct MCV MCH MCHC RDW RDW Differential Plt Count MPV Neut % (Auto) Absolute Neuts (auto) Absolute Lymphs (auto) Total Counted Neutrophils % (Manual) Band Neutrophils % Lymphocytes % (Manual) Monocytes % (Manual) Metamyelocytes % Myelocytes % Nucleated RBC % Diff Path Review Polychromasia Anisocytosis Absolute Retic Sodium Potassium Chloride Carbon Dioxide Anion Gap BUN Creatinine Estim Creat Clear Calc Est GFR (MDRD) Af Amer Est GFR (MDRD) Non-Af BUN/Creatinine Ratio Glucose Lactic Acid 1.7 Calcium TSH 1.62 MRSA (PCR) Negative 09/12/17 09/12/17 04:45 04:45 WBC 13.5 H RBC 2.95 L Hgb 8.0 L Hct 24.6 L MCV 83.4 MCH 27.1 MCHC 32.5 RDW 16.4 H RDW Differential 48.6 H Plt Count 206 MPV 10.6 Neut % (Auto) Not Reportable Absolute Neuts (auto) 10.8 H Absolute Lymphs (auto) 1.22 Total Counted 100 Neutrophils % (Manual) 70 Band Neutrophils % 7 H Lymphocytes % (Manual) 9 L Monocytes % (Manual) 11 H Metamyelocytes % 2 H Myelocytes % 1 H Nucleated RBC % 0.9 Diff Path Review May foll Polychromasia RARE Anisocytosis 1+ Absolute Retic 0.12 Sodium 133 L Potassium 3.8 Chloride 97 L Carbon Dioxide 28.0 Anion Gap 8 BUN 10 Creatinine 0.85 Estim Creat Clear Calc 97.81 Est GFR (MDRD) Af Amer 119 Est GFR (MDRD) Non-Af 98 BUN/Creatinine Ratio 11.8 Glucose 169 H Lactic Acid Calcium 7.6 L TSH MRSA (PCR) POC Glucose 09/12/17 09/12/17 09/11/17 11:11 06:54 23:50 POC Glucose 181 H 166 H 160 H Medical Necessity - Tobacco Use Smoking Status: Former smoker Assessment/Plan Active and Suspected Problems Tachycardia (Acute) Severe sepsis (Acute) Left leg cellulitis (Acute) 1. Acute severe sepsis 2/2 recurrent LLE cellulitis - continue unasyn. Continues to have poor bp and sinus tachy to 150s despite 4 liters bolus and maintenance fluid. If his BP deteriorates further he may need placed in the ICU. CTA shows mets. No PEs. No pna. LA improved to 1.7. TSh normal. UA neg. WBC improved. Afebrile. BCx pending. 2. DVT LLE - home lovenox 3. SVT - cardizem drip. DC if BP intolerant. Pt asymptomatic. 4. 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 Sahu. last chemo 08.30.17. Next cycle planned for this Saturday. 5. Normocytic anemia - currently no need for transfusion. Trend. 6. Hyponatremia improved - ? SIADH 2/2 oncologic process. 7. DMt2 - metformin held. SSI. DVT ppx: lovenox - therapeutic dose DC planning: PTOT. Pt still high acuity This patient was seen by Scooter Winter PA-C under the supervision of Doctor Sofiya. <Bhavin Arriaza - Last Filed: 09/12/17 15:41> - Physical Exam General: Alert, Cooperative HEENT: Atraumatic, Normocephalic Lungs: Clear to auscultation, Normal air movement Cardiovascular: No murmurs, Tachycardic Abdomen: Bowel Sounds Present, Soft, Non Tender Extremities: Edema, - Skin: No rashes, No breakdown, - Vital Signs Temp Pulse Resp BP Pulse Ox 36.4 C L 149 H 11 L 100/75 98 09/12/17 14:00 09/12/17 15:15 09/12/17 15:15 09/12/17 15:15 09/12/17 15:15 Oxygen Delivery Method Room Air Weight: 118.5 kg Body Mass Index (BMI) 37.5 Intake and Output for Last 24 Hours 09/10/17 09/11/17 09/12/17 23:59 23:59 23:59 Intake Total 2995 / 2995 Output Total 700 / 700 Balance 2295 / 2295 Microbiology Past 72 Hours 09/11/17 23:50 Gram Stain - Final Wound - Groin Laboratory Tests Past 24 Hrs 09/11/17 09/11/17 09/11/17 21:50 21:50 23:50 WBC RBC Hgb Hct MCV MCH MCHC RDW RDW Differential Plt Count MPV Neut % (Auto) Absolute Neuts (auto) Absolute Lymphs (auto) Total Counted Neutrophils % (Manual) Band Neutrophils % Lymphocytes % (Manual) Monocytes % (Manual) Metamyelocytes % Myelocytes % Nucleated RBC % Diff Path Review Polychromasia Anisocytosis Absolute Retic Sodium Potassium Chloride Carbon Dioxide Anion Gap BUN Creatinine Estim Creat Clear Calc Est GFR (MDRD) Af Amer Est GFR (MDRD) Non-Af BUN/Creatinine Ratio Glucose Lactic Acid 1.7 Calcium TSH 1.62 MRSA (PCR) Negative 09/12/17 09/12/17 04:45 04:45 WBC 13.5 H RBC 2.95 L Hgb 8.0 L Hct 24.6 L MCV 83.4 MCH 27.1 MCHC 32.5 RDW 16.4 H RDW Differential 48.6 H Plt Count 206 MPV 10.6 Neut % (Auto) Not Reportable Absolute Neuts (auto) 10.8 H Absolute Lymphs (auto) 1.22 Total Counted 100 Neutrophils % (Manual) 70 Band Neutrophils % 7 H Lymphocytes % (Manual) 9 L Monocytes % (Manual) 11 H Metamyelocytes % 2 H Myelocytes % 1 H Nucleated RBC % 0.9 Diff Path Review May foll Polychromasia RARE Anisocytosis 1+ Absolute Retic 0.12 Sodium 133 L Potassium 3.8 Chloride 97 L Carbon Dioxide 28.0 Anion Gap 8 BUN 10 Creatinine 0.85 Estim Creat Clear Calc 97.81 Est GFR (MDRD) Af Amer 119 Est GFR (MDRD) Non-Af 98 BUN/Creatinine Ratio 11.8 Glucose 169 H Lactic Acid Calcium 7.6 L TSH MRSA (PCR) POC Glucose 09/12/17 09/12/17 09/11/17 11:11 06:54 23:50 POC Glucose 181 H 166 H 160 H Assessment/Plan Patient seen and examined independently. I agree with the above note by the PA. 1. Severe Sepsis: POA. 2/2 #2. IVF. lactate normalized. 2. LLE cellulitis: suspect strep. on unasyn. 3. SVT: HR 140-150. asymptomatic. cardizem bolus then gtt. Code Visit Inpatient E&M: 90376 Subs Hosp L3
--- NOTE | 2017-09-12 15:02 | PN_ITS ---
Addendum entered and electronically signed by TAMI Hoffman 09/12/17 15:18: Code Visit Addendum: Discussed patients advance directive, he has not previously considered whether he wants intubation/CPR/resuscitation/feeding tube if it would come to that. He does not have an answer at this time and wants to think about it more. He will remain full code for now. Original Note: <Scooter Winter - Last Filed: 09/12/17 15:16> Patient Problems: Active and Suspected Problems Tachycardia (Acute) Severe sepsis (Acute) Left leg cellulitis (Acute) Subjective: Pt feels somewhat groggy this morning, slow to answer questions, but answering appropriately. He cannot feel his heart racing or pounding. He denies SOB, CP, pressure, palp, LH, dizziness. He has significant pain in his LLE. He has been compliant with home lovenox. He was treated with Abx for the cellulitis recently , after which it came back - he cannot remember what he was on. - Physical Exam General: Alert, Oriented x3, Cooperative HEENT: Atraumatic, PERRLA, EOMI, Normocephalic Neck: Supple, No JVD, Negative Carotid Bruits Lungs: Clear to auscultation, Normal air movement Cardiovascular: No murmurs, Tachycardic Abdomen: Bowel Sounds Present, Soft, Non Tender Extremities: No edema, Capillary Refill Less than 3 Seconds, Edema, - Skin: No rashes, No breakdown, - - left lower leg cellulitis changes, rendess, warmth, edema, nontender to palp. Musculoskeletal: No Tenderness to Palpation of Joints or Extremities Neurological: Cranial nerves II-XII grossly intact Psych/Mental Status: Normal Affect, Appropriate, Alert and oriented to time, place, person, mood and affect Vital Signs Temp Pulse Resp BP Pulse Ox 97.5 F L 148 H 14 94/68 98 09/12/17 14:00 09/12/17 14:00 09/12/17 14:00 09/12/17 14:00 09/12/17 14:00 Oxygen Delivery Method Room Air Weight: 118.5 kg Body Mass Index (BMI) 37.5 Intake and Output for Last 24 Hours 09/10/17 09/11/17 09/12/17 23:59 23:59 23:59 Intake Total 2995 / 2995 Output Total 700 / 700 Balance 2295 / 2295 Microbiology Past 72 Hours 09/11/17 23:50 Gram Stain - Final Wound - Groin Laboratory Tests Past 24 Hrs 09/11/17 09/11/17 09/11/17 21:50 21:50 23:50 WBC RBC Hgb Hct MCV MCH MCHC RDW RDW Differential Plt Count MPV Neut % (Auto) Absolute Neuts (auto) Absolute Lymphs (auto) Total Counted Neutrophils % (Manual) Band Neutrophils % Lymphocytes % (Manual) Monocytes % (Manual) Metamyelocytes % Myelocytes % Nucleated RBC % Diff Path Review Polychromasia Anisocytosis Absolute Retic Sodium Potassium Chloride Carbon Dioxide Anion Gap BUN Creatinine Estim Creat Clear Calc Est GFR (MDRD) Af Amer Est GFR (MDRD) Non-Af BUN/Creatinine Ratio Glucose Lactic Acid 1.7 Calcium TSH 1.62 MRSA (PCR) Negative 09/12/17 09/12/17 04:45 04:45 WBC 13.5 H RBC 2.95 L Hgb 8.0 L Hct 24.6 L MCV 83.4 MCH 27.1 MCHC 32.5 RDW 16.4 H RDW Differential 48.6 H Plt Count 206 MPV 10.6 Neut % (Auto) Not Reportable Absolute Neuts (auto) 10.8 H Absolute Lymphs (auto) 1.22 Total Counted 100 Neutrophils % (Manual) 70 Band Neutrophils % 7 H Lymphocytes % (Manual) 9 L Monocytes % (Manual) 11 H Metamyelocytes % 2 H Myelocytes % 1 H Nucleated RBC % 0.9 Diff Path Review May foll Polychromasia RARE Anisocytosis 1+ Absolute Retic 0.12 Sodium 133 L Potassium 3.8 Chloride 97 L Carbon Dioxide 28.0 Anion Gap 8 BUN 10 Creatinine 0.85 Estim Creat Clear Calc 97.81 Est GFR (MDRD) Af Amer 119 Est GFR (MDRD) Non-Af 98 BUN/Creatinine Ratio 11.8 Glucose 169 H Lactic Acid Calcium 7.6 L TSH MRSA (PCR) POC Glucose 09/12/17 09/12/17 09/11/17 11:11 06:54 23:50 POC Glucose 181 H 166 H 160 H Medical Necessity - Tobacco Use Smoking Status: Former smoker Assessment/Plan Active and Suspected Problems Tachycardia (Acute) Severe sepsis (Acute) Left leg cellulitis (Acute) 1. Acute severe sepsis 2/2 recurrent LLE cellulitis - continue unasyn. Continues to have poor bp and sinus tachy to 150s despite 4 liters bolus and maintenance fluid. If his BP deteriorates further he may need placed in the ICU. CTA shows mets. No PEs. No pna. LA improved to 1.7. TSh normal. UA neg. WBC improved. Afebrile. BCx pending. 2. DVT LLE - home lovenox 3. SVT - cardizem drip. DC if BP intolerant. Pt asymptomatic. 4. 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 Sahu. last chemo 08.30.17. Next cycle planned for this Saturday. 5. Normocytic anemia - currently no need for transfusion. Trend. 6. Hyponatremia improved - ? SIADH 2/2 oncologic process. 7. DMt2 - metformin held. SSI. DVT ppx: lovenox - therapeutic dose DC planning: PTOT. Pt still high acuity This patient was seen by Scooter Winter PA-C under the supervision of Doctor Sofiya. <Bhavin Arriaza - Last Filed: 09/12/17 15:41> - Physical Exam General: Alert, Cooperative HEENT: Atraumatic, Normocephalic Lungs: Clear to auscultation, Normal air movement Cardiovascular: No murmurs, Tachycardic Abdomen: Bowel Sounds Present, Soft, Non Tender Extremities: Edema, - Skin: No rashes, No breakdown, - Vital Signs Temp Pulse Resp BP Pulse Ox 36.4 C L 149 H 11 L 100/75 98 09/12/17 14:00 09/12/17 15:15 09/12/17 15:15 09/12/17 15:15 09/12/17 15:15 Oxygen Delivery Method Room Air Weight: 118.5 kg Body Mass Index (BMI) 37.5 Intake and Output for Last 24 Hours 09/10/17 09/11/17 09/12/17 23:59 23:59 23:59 Intake Total 2995 / 2995 Output Total 700 / 700 Balance 2295 / 2295 Microbiology Past 72 Hours 09/11/17 23:50 Gram Stain - Final Wound - Groin Laboratory Tests Past 24 Hrs 09/11/17 09/11/17 09/11/17 21:50 21:50 23:50 WBC RBC Hgb Hct MCV MCH MCHC RDW RDW Differential Plt Count MPV Neut % (Auto) Absolute Neuts (auto) Absolute Lymphs (auto) Total Counted Neutrophils % (Manual) Band Neutrophils % Lymphocytes % (Manual) Monocytes % (Manual) Metamyelocytes % Myelocytes % Nucleated RBC % Diff Path Review Polychromasia Anisocytosis Absolute Retic Sodium Potassium Chloride Carbon Dioxide Anion Gap BUN Creatinine Estim Creat Clear Calc Est GFR (MDRD) Af Amer Est GFR (MDRD) Non-Af BUN/Creatinine Ratio Glucose Lactic Acid 1.7 Calcium TSH 1.62 MRSA (PCR) Negative 09/12/17 09/12/17 04:45 04:45 WBC 13.5 H RBC 2.95 L Hgb 8.0 L Hct 24.6 L MCV 83.4 MCH 27.1 MCHC 32.5 RDW 16.4 H RDW Differential 48.6 H Plt Count 206 MPV 10.6 Neut % (Auto) Not Reportable Absolute Neuts (auto) 10.8 H Absolute Lymphs (auto) 1.22 Total Counted 100 Neutrophils % (Manual) 70 Band Neutrophils % 7 H Lymphocytes % (Manual) 9 L Monocytes % (Manual) 11 H Metamyelocytes % 2 H Myelocytes % 1 H Nucleated RBC % 0.9 Diff Path Review May foll Polychromasia RARE Anisocytosis 1+ Absolute Retic 0.12 Sodium 133 L Potassium 3.8 Chloride 97 L Carbon Dioxide 28.0 Anion Gap 8 BUN 10 Creatinine 0.85 Estim Creat Clear Calc 97.81 Est GFR (MDRD) Af Amer 119 Est GFR (MDRD) Non-Af 98 BUN/Creatinine Ratio 11.8 Glucose 169 H Lactic Acid Calcium 7.6 L TSH MRSA (PCR) POC Glucose 09/12/17 09/12/17 09/11/17 11:11 06:54 23:50 POC Glucose 181 H 166 H 160 H Assessment/Plan Patient seen and examined independently. I agree with the above note by the PA. 1. Severe Sepsis: POA. 2/2 #2. IVF. lactate normalized. 2. LLE cellulitis: suspect strep. on unasyn. 3. SVT: HR 140-150. asymptomatic. cardizem bolus then gtt. Code Visit Inpatient E&M: 93256 Subs Hosp L3
--- NOTE | 2017-09-12 15:16 | CASEMGMT ---
Face to Face with patient for initial transition planning/care coordination assessment. VERNELL GIVENS introduced self and role at [facility], pt voices understanding and consents to assessment at this time. Pt is sitting up in bed in no distress at this time. Pt is A/O x4 at this time and answers most questions appropriately at this time. Care providers, pharmacy, and demographics verified. See attached link. Pt voices no further concerns/needs at this time. Advised pt to ask for CM if any further questions/concerns/needs arise, voices understanding. Referral to for AD info and waiver program, voices understanding. PLAN: [place] VERNELL GIVENS
--- NOTE | 2017-09-12 15:50 | CHAPLAIN ---
Type of Pastoral Visit _x__ Initial Visit ___ Follow-up Visit ___ On-call Visit ___ General Patient Visit ___ Spiritual Assessment ___ Family Conference ___ Bereavement ___ Rapid Response ___ Code Blue ___ Other (describe below) Pastoral Care Referral From _x__ Patient ___ Family ___ Nurse ___ Physician ___ Agricultural Service Technician ___ Yarn Handler ___ Other (describe below) Sacrament/Intervention _x__ Active listening ___ Anointing ___ Cheondoism ___ Bereavement ___ Communion ___ Allison exploration ___ ___ Life review _x__ Prayer ___ Reconciliation ___ Sacrament of Sick _x__ Supportive presence ___ Wedding ___ Other (describe below) Pastoral Comments
[2017-09-12 16:31] LABS: Bedside Glucose 154 mg/dL (70-110)
[2017-09-12] MEDS: Digoxin 250 MCG/ML Ampul 100 MCG IV (18:35)
[2017-09-12] MEDS: 0.9% Normal Saline 1,000 ML 125 ML IV (18:38)
[2017-09-13] VITALS (25 sets, daily range): BP systolic 84–142; BP diastolic 55–125; PULSE 71–145; RESP 11–20; TEMP 36.7–37; O2SAT 92–100
[2017-09-13 00:31] LABS: Bedside Glucose 131 mg/dL (70-110)
[2017-09-13] MEDS: 0.9% Normal Saline 1,000 ML 125 ML IV ×3 (02:39→23:19)
[2017-09-13] MEDS: 0.9% NaCl VAD Flush 10 ML IV ×3 (04:39→14:10)
[2017-09-13] MEDS: oxyCODONE 5 MG Tablet 10 MG PO ×3 (04:55→23:00)
[2017-09-13 06:34] LABS: Hematocrit 24.5 % (40-54); Hemoglobin 7.9 g/dl (13.0-16.5); Red Blood Count 2.89 M/mm3 (4.6-6.2); White Blood Count 13.6 K/mm3 (4.4-11.0)
[2017-09-13 06:35] LABS: Differential Indicated MANUAL DIFF; Mean Corp Hgb Conc 32.2 g/gl (32-36); Mean Corpuscular Hgb 27.3 pg (27.0-32.0); Mean Corpuscular Volume 84.8 fL (80-94); Mean Platelet Vol. 10.6 fl (6.2-12.0); POSITIVE COUNT NO; POSITIVE DIFFERENTIAL YES; POSITIVE MORPHOLOGY YES; Platelet Count 237 K/mm3 (150-450); RBC Distribution Width CV 16.9 % (11.6-14.6); RBC Distribution Width SD 50.3 fl (35.1-43.9)
[2017-09-13 06:42] LABS: Lymphocyte 5 % (19-41); Metamyelocyte 2 % (0-1); Monocyte 16 % (0-10); Myelocyte 1 (0-0); Neutrophil-Band 4 % (0-5); Neutrophil-Segmented 72 % (47-70); Platelet Estimate ADEQUATE (ADEQ); Red Cell Morphology NORM C+C NORMAL (NORM C&C); Total Cells Counted 100 (MANUAL DIFF)
[2017-09-13 06:43] LABS: Absolute Lymphocyte Count 0.68 X10^3/ul (0.83-4.51); Absolute Neutrophil Count 10.3 X10^3/uL (2.0-7.7); Lymphocyte # 0.68 X10^3/ul (4.0); Neutrophil # 10.33 X10^3/uL (2.7-7.7); Polychromasia RARE
[2017-09-13 06:44] LABS: Absolute Nucleated RBC Count 0.15 10^3/uL (0-5); NRBC Flagged by Analyzer 1 % (0-5)
[2017-09-13 07:10] LABS: Bedside Glucose 110 mg/dL (70-110)
[2017-09-13 09:27] LABS: Pathologist Review Reviewed
[2017-09-13 09:29] LABS: Pathologist Review Reviewed
[2017-09-13] MEDS: Gabapentin 600 MG Tablet PO ×3 (09:34→16:41)
[2017-09-13] MEDS: DULoxetine Hcl 30 MG Capsule 90 MG PO (09:34)
[2017-09-13] MEDS: Senna/Docusate Sodium 1 Tablet 2 TABLET PO (09:35)
[2017-09-13] MEDS: Enoxaparin 120 MG/0.8 ML Syringe SC ×2 (09:35→23:02)
[2017-09-13] MEDS: Glucerna Shake 120 ML LIQUID PO ×3 (09:35→16:41)
--- NOTE | 2017-09-13 09:47 | NURSING ---
Alanis RN stated she had just washed the left groin with soap and water and replaced the InterDry. nurse states there was a moderate amount of drainage. LUIS Helms ordered nystatin powder to be applied as well TID. will continue to monitor.
[2017-09-13 10:28] LABS: Iron 37 ug/dL (65-175); Iron Binding Capacity,Total 153 ug/dL (250-450); PERCENT IRON SATURATION 24.2 % (15.0-55.0)
[2017-09-13 11:25] LABS: Bedside Glucose 141 mg/dL (70-110)
[2017-09-13] MEDS: Nystatin Powder 15gm Bottle 1 APPLIC TOPICAL ×2 (12:02→23:02)
--- NOTE | 2017-09-13 12:11 | CASEMGMT ---
WANDY spoke with patient about advance directives. WANDY explained documents. He wants to talk with his cousin about them. WANDY told him if he would like to do them while in the hospital he can ask for WANDY. WANDY will also find out contact information for his waiver program lining caser. Willa MOORE MSW
--- NOTE | 2017-09-13 13:20 | CASEMGMT ---
WANDY called [facility] for [facility]. WANDY left a message for the aide inquiring who SW needs to call when patient is d/c and if they want d/c instructions faxed. Plan: Patient will be d/c home with resumption of waiver services. Willa SWAN
--- NOTE | 2017-09-13 13:58 | PCM.PROGNOTE ---
<Scooter Winter - Last Filed: 09/13/17 13:58> Patient Problems: Active and Suspected Problems Tachycardia (Acute) Severe sepsis (Acute) Left leg cellulitis (Acute) Subjective: Pt more alert this morning. He continues to deny palpitations, CP, SOB, dizziness or LH. No fevers or chills. The pain in his left leg has significantly improved. Remains swollen about the same as yesterday. No open areas or discharge on his left lower extremity. He has intertrigo like changes in his abdominal pannus. - Physical Exam General: Alert, Oriented x3, Cooperative HEENT: Atraumatic, PERRLA, EOMI, Normocephalic Neck: Supple, No JVD, Negative Carotid Bruits Lungs: Clear to auscultation, Normal air movement Cardiovascular: Regular rate, No murmurs Abdomen: Bowel Sounds Present, Soft, Non Tender Extremities: No edema, Capillary Refill Less than 3 Seconds, Edema - Edema, erythema, warmth of the left lower extremity. Less erythematous than yesterday. No tenderness to palpation. Edema is pitting 3+ Skin: No rashes, No breakdown, - - abdominal intertrigo Musculoskeletal: No Tenderness to Palpation of Joints or Extremities Neurological: Cranial nerves II-XII grossly intact Psych/Mental Status: Normal Affect, Appropriate, Alert and oriented to time, place, person, mood and affect - More alert today. Vital Signs Temp Pulse Resp BP Pulse Ox 98.4 F 122 H 18 101/76 95 09/13/17 12:00 09/13/17 12:00 09/13/17 12:00 09/13/17 12:00 09/13/17 12:00 Oxygen Delivery Method Room Air Weight: 118.5 kg Body Mass Index (BMI) 37.5 Intake and Output for Last 24 Hours 09/11/17 09/12/17 09/13/17 23:59 23:59 23:59 Intake Total 6551 / 6551 2137 / 2137 Output Total 1025 / 1025 975 / 975 Balance 5526 / 5526 1162 / 1162 Microbiology Past 72 Hours 09/11/17 23:50 Gram Stain - Final Wound - Groin Wound Culture - Preliminary Mixed Rasheeda Laboratory Tests Past 24 Hrs 09/12/17 09/13/17 09/13/17 04:45 04:35 04:35 WBC 13.6 H RBC 2.89 L Hgb 7.9 L Hct 24.5 L MCV 84.8 MCH 27.3 MCHC 32.2 RDW 16.9 H RDW Differential 50.3 H Plt Count 237 MPV 10.6 Neut % (Auto) Not Reportable Absolute Neuts (auto) 10.3 H Absolute Lymphs (auto) 0.68 L Total Counted 100 Neutrophils % (Manual) 72 H Band Neutrophils % 4 Lymphocytes % (Manual) 5 L Monocytes % (Manual) 16 H Metamyelocytes % 2 H Myelocytes % 1 H Nucleated RBC % 1 Diff Path Review Reviewed May foll Platelet Estimate ADEQUATE RBC Morphology NORM C+C Polychromasia RARE Absolute Retic 0.15 Iron 37 L TIBC 153 L Iron Saturation 24.2 POC Glucose 09/13/17 09/13/17 09/12/17 11:17 06:39 22:09 POC Glucose 141 H 110 131 H 09/12/17 16:19 POC Glucose 154 H Medical Necessity - Tobacco Use Smoking Status: Former smoker Assessment/Plan Active and Suspected Problems Tachycardia (Acute) Severe sepsis (Acute) Left leg cellulitis (Acute) 1. Acute severe sepsis 2/2 recurrent LLE cellulitis - continue unasyn. Afebrile, leukocytosis improved. Cardia improved overnight with Cardizem and digoxin. IV fluids discontinued. Wound culture was taken from his intertrigo and has mixed organisms, the relevance of which is questionable. 2. DVT LLE - home lovenox 3. SVT - 2/2 acute severe sepsis. s/p cardizem and digoxin. Now off both. tachy is somewhat recurring. Pt remains asymptomatic. 4. 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 Sahu. last chemo 08.30.17. Next cycle planned for this Saturday. He has had chemotherapy, radiation. He tells me that he was not a candidate for surgery, thusly it is likely terminal. He however, wants to remain full code per our discussion yesterday as he is unsure what he wants done if he codes. He is currently considering his advance directives and will with input from his family. 5. Normocytic anemia -iron panels nonspecific. Remains significantly anemic. No need for transfusion at this point. 6. Hyponatremia improved - ? SIADH 2/2 oncologic process. 7. DMt2 - metformin held. SSI. DVT ppx: lovenox - therapeutic dose DC planning: PTOT. Pt still high acuity This patient was seen by Scooter Winter PA-C under the supervision of Doctor Sofiya. <Bhavin Arriaza - Last Filed: 09/13/17 14:45> - Physical Exam General: Alert, Cooperative HEENT: Atraumatic, Normocephalic Lungs: Clear to auscultation, Normal air movement Cardiovascular: Regular rate, Regular Rhythm, Normal S1, Normal S2 Abdomen: Bowel Sounds Present, Soft, Non Tender Extremities: No edema, No Calf Tenderness Skin: - - abdominal intertrigo. decreased erythema LLE Vital Signs Temp Pulse Resp BP Pulse Ox 36.9 C 122 H 18 101/76 95 09/13/17 12:00 09/13/17 12:00 09/13/17 12:00 09/13/17 12:00 09/13/17 12:00 Oxygen Delivery Method Room Air Weight: 118.5 kg Body Mass Index (BMI) 37.5 Intake and Output for Last 24 Hours 09/11/17 09/12/17 09/13/17 23:59 23:59 23:59 Intake Total 6551 / 6551 2137 / 2137 Output Total 1025 / 1025 975 / 975 Balance 5526 / 5526 1162 / 1162 Microbiology Past 72 Hours 09/11/17 23:50 Gram Stain - Final Wound - Groin Wound Culture - Preliminary Mixed Rasheeda Laboratory Tests Past 24 Hrs 09/12/17 09/13/17 09/13/17 04:45 04:35 04:35 WBC 13.6 H RBC 2.89 L Hgb 7.9 L Hct 24.5 L MCV 84.8 MCH 27.3 MCHC 32.2 RDW 16.9 H RDW Differential 50.3 H Plt Count 237 MPV 10.6 Neut % (Auto) Not Reportable Absolute Neuts (auto) 10.3 H Absolute Lymphs (auto) 0.68 L Total Counted 100 Neutrophils % (Manual) 72 H Band Neutrophils % 4 Lymphocytes % (Manual) 5 L Monocytes % (Manual) 16 H Metamyelocytes % 2 H Myelocytes % 1 H Nucleated RBC % 1 Diff Path Review Reviewed Reviewed Platelet Estimate ADEQUATE RBC Morphology NORM C+C Polychromasia RARE Absolute Retic 0.15 Iron 37 L TIBC 153 L Iron Saturation 24.2 POC Glucose 09/13/17 09/13/17 09/12/17 11:17 06:39 22:09 POC Glucose 141 H 110 131 H 09/12/17 16:19 POC Glucose 154 H Assessment/Plan Patient seen and examined independent. Agree with the above note by the physician physician assistant surgery. 1. Acute severe sepsis: Present on arrival Resolved 2. Left lower extremity cellulitis Presumed streptococcal Improving Continue Unasyn 3. SVT: Overall improved. Patient did receive Cardizem and then digoxin. Heart rate slightly gone u recent will give the patient additional dose of digoxin and monitor. Patient is asymptomatic. 4. Stage IV liposarcoma Follow-up with oncology. Further goals of care will need to be further addressed with oncology. Code Visit Inpatient E&M: 75149 Subs Hosp L2
--- NOTE | 2017-09-13 14:06 | PN_ITS ---
<Scooter Winter - Last Filed: 09/13/17 13:58> Patient Problems: Active and Suspected Problems Tachycardia (Acute) Severe sepsis (Acute) Left leg cellulitis (Acute) Subjective: Pt more alert this morning. He continues to deny palpitations, CP, SOB, dizziness or LH. No fevers or chills. The pain in his left leg has significantly improved. Remains swollen about the same as yesterday. No open areas or discharge on his left lower extremity. He has intertrigo like changes in his abdominal pannus. - Physical Exam General: Alert, Oriented x3, Cooperative HEENT: Atraumatic, PERRLA, EOMI, Normocephalic Neck: Supple, No JVD, Negative Carotid Bruits Lungs: Clear to auscultation, Normal air movement Cardiovascular: Regular rate, No murmurs Abdomen: Bowel Sounds Present, Soft, Non Tender Extremities: No edema, Capillary Refill Less than 3 Seconds, Edema - Edema, erythema, warmth of the left lower extremity. Less erythematous than yesterday. No tenderness to palpation. Edema is pitting 3+ Skin: No rashes, No breakdown, - - abdominal intertrigo Musculoskeletal: No Tenderness to Palpation of Joints or Extremities Neurological: Cranial nerves II-XII grossly intact Psych/Mental Status: Normal Affect, Appropriate, Alert and oriented to time, place, person, mood and affect - More alert today. Vital Signs Temp Pulse Resp BP Pulse Ox 98.4 F 122 H 18 101/76 95 09/13/17 12:00 09/13/17 12:00 09/13/17 12:00 09/13/17 12:00 09/13/17 12:00 Oxygen Delivery Method Room Air Weight: 118.5 kg Body Mass Index (BMI) 37.5 Intake and Output for Last 24 Hours 09/11/17 09/12/17 09/13/17 23:59 23:59 23:59 Intake Total 6551 / 6551 2137 / 2137 Output Total 1025 / 1025 975 / 975 Balance 5526 / 5526 1162 / 1162 Microbiology Past 72 Hours 09/11/17 23:50 Gram Stain - Final Wound - Groin Wound Culture - Preliminary Mixed Rasheeda Laboratory Tests Past 24 Hrs 09/12/17 09/13/17 09/13/17 04:45 04:35 04:35 WBC 13.6 H RBC 2.89 L Hgb 7.9 L Hct 24.5 L MCV 84.8 MCH 27.3 MCHC 32.2 RDW 16.9 H RDW Differential 50.3 H Plt Count 237 MPV 10.6 Neut % (Auto) Not Reportable Absolute Neuts (auto) 10.3 H Absolute Lymphs (auto) 0.68 L Total Counted 100 Neutrophils % (Manual) 72 H Band Neutrophils % 4 Lymphocytes % (Manual) 5 L Monocytes % (Manual) 16 H Metamyelocytes % 2 H Myelocytes % 1 H Nucleated RBC % 1 Diff Path Review Reviewed May foll Platelet Estimate ADEQUATE RBC Morphology NORM C+C Polychromasia RARE Absolute Retic 0.15 Iron 37 L TIBC 153 L Iron Saturation 24.2 POC Glucose 09/13/17 09/13/17 09/12/17 11:17 06:39 22:09 POC Glucose 141 H 110 131 H 09/12/17 16:19 POC Glucose 154 H Medical Necessity - Tobacco Use Smoking Status: Former smoker Assessment/Plan Active and Suspected Problems Tachycardia (Acute) Severe sepsis (Acute) Left leg cellulitis (Acute) 1. Acute severe sepsis 2/2 recurrent LLE cellulitis - continue unasyn. Afebrile , leukocytosis improved. Cardia improved overnight with Cardizem and digoxin. IV fluids discontinued. Wound culture was taken from his intertrigo and has mixed organisms, the relevance of which is questionable. 2. DVT LLE - home lovenox 3. SVT - 2/2 acute severe sepsis. s/p cardizem and digoxin. Now off both. tachy is somewhat recurring. Pt remains asymptomatic. 4. 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 Sahu. last chemo 08.30.17. Next cycle planned for this Saturday. He has had chemotherapy , radiation. He tells me that he was not a candidate for surgery, thusly it is likely terminal. He however, wants to remain full code per our discussion yesterday as he is unsure what he wants done if he codes. He is currently considering his advance directives and will with input from his family. 5. Normocytic anemia -iron panels nonspecific. Remains significantly anemic. No need for transfusion at this point. 6. Hyponatremia improved - ? SIADH 2/2 oncologic process. 7. DMt2 - metformin held. SSI. DVT ppx: lovenox - therapeutic dose DC planning: PTOT. Pt still high acuity This patient was seen by Scooter Winter PA-C under the supervision of Doctor Sofiay. <Bhavin Arriaza - Last Filed: 09/13/17 14:45> - Physical Exam General: Alert, Cooperative HEENT: Atraumatic, Normocephalic Lungs: Clear to auscultation, Normal air movement Cardiovascular: Regular rate, Regular Rhythm, Normal S1, Normal S2 Abdomen: Bowel Sounds Present, Soft, Non Tender Extremities: No edema, No Calf Tenderness Skin: - - abdominal intertrigo. decreased erythema LLE Vital Signs Temp Pulse Resp BP Pulse Ox 36.9 C 122 H 18 101/76 95 09/13/17 12:00 09/13/17 12:00 09/13/17 12:00 09/13/17 12:00 09/13/17 12:00 Oxygen Delivery Method Room Air Weight: 118.5 kg Body Mass Index (BMI) 37.5 Intake and Output for Last 24 Hours 09/11/17 09/12/17 09/13/17 23:59 23:59 23:59 Intake Total 6551 / 6551 2137 / 2137 Output Total 1025 / 1025 975 / 975 Balance 5526 / 5526 1162 / 1162 Microbiology Past 72 Hours 09/11/17 23:50 Gram Stain - Final Wound - Groin Wound Culture - Preliminary Mixed Rasheeda Laboratory Tests Past 24 Hrs 09/12/17 09/13/17 09/13/17 04:45 04:35 04:35 WBC 13.6 H RBC 2.89 L Hgb 7.9 L Hct 24.5 L MCV 84.8 MCH 27.3 MCHC 32.2 RDW 16.9 H RDW Differential 50.3 H Plt Count 237 MPV 10.6 Neut % (Auto) Not Reportable Absolute Neuts (auto) 10.3 H Absolute Lymphs (auto) 0.68 L Total Counted 100 Neutrophils % (Manual) 72 H Band Neutrophils % 4 Lymphocytes % (Manual) 5 L Monocytes % (Manual) 16 H Metamyelocytes % 2 H Myelocytes % 1 H Nucleated RBC % 1 Diff Path Review Reviewed Reviewed Platelet Estimate ADEQUATE RBC Morphology NORM C+C Polychromasia RARE Absolute Retic 0.15 Iron 37 L TIBC 153 L Iron Saturation 24.2 POC Glucose 09/13/17 09/13/17 09/12/17 11:17 06:39 22:09 POC Glucose 141 H 110 131 H 09/12/17 16:19 POC Glucose 154 H Assessment/Plan Patient seen and examined independent. Agree with the above note by the physician event sales assistant. 1. Acute severe sepsis: * Present on arrival * Resolved 2. Left lower extremity cellulitis * Presumed streptococcal * Improving * Continue Unasyn 3. SVT: * Overall improved. Patient did receive Cardizem and then digoxin. * Heart rate slightly gone u recent will give the patient additional dose of digoxin and monitor. Patient is asymptomatic. 4. Stage IV liposarcoma * Follow-up with oncology. Further goals of care will need to be further addressed with oncology. Code Visit Inpatient E&M: 57898 Subs Hosp L2
--- NOTE | 2017-09-13 14:09 | CASEMGMT ---
WANDY spoke with [facility] and was given the phone number for Cares[facility] marys. SW called [facility] and patient's Upset Welding Machine Operator is Philippe Brewster, but Raquel Asher is covering currently. Philippe's number is [phone]. Raquel's phone is [phone] and fax is [phone]. WANDY also called [facility] and arranged for patient to have home PT/OT per his request. Order and other referral information faxed to [facility]. Plan: Home with resumption of waiver services and [facility] PT/OT. Willa MOORE MSW
[2017-09-13 14:36] LABS: Pathologist Review Reviewed
[2017-09-13] MEDS: Digoxin 250 MCG/ML Ampul 100 MCG IV (15:06)
[2017-09-13 16:55] LABS: Bedside Glucose 152 mg/dL (70-110)
[2017-09-13 23:36] LABS: Bedside Glucose 118 mg/dL (70-110)
[2017-09-14] VITALS (35 sets, daily range): BP systolic 89–118; BP diastolic 16–81; PULSE 74–149; RESP 12–25; TEMP 36.5–37.6; O2SAT 81–100
--- NOTE | 2017-09-14 00:48 | EKG12_ITS ---
Test Reason : TACHYCARDIA Blood Pressure : / mmHG Vent. Rate : 144 BPM Atrial Rate : 111 BPM P-R Int : 000 ms QRS Dur : 098 ms QT Int : 322 ms P-R-T Axes : 000 -59 065 degrees QTc Int : 498 ms Supraventricular tachycardia Left axis deviation Septal infarct , age undetermined Abnormal ECG When compared with ECG of 12-SEP-2017 06:10, MANUAL COMPARISON REQUIRED, DATA IS UNCONFIRMED Confirmed by YIMI LANG, DACIA ([id number]), non linear editor SHIRA HINKLE ([id number]) on 09/18/2017 2:33:39 PM Referred By: DR ARMAS Confirmed By:DACIA GELLER MD
[2017-09-14] MEDS: dilTIAZem 25 MG/5 ML Vial 10 MG IV BOLUS (03:42)
--- NOTE | 2017-09-14 04:30 | NURSING ---
This nurse was in room with pt. assisting with getting out of bed to use urinal. Pt. stood up quickly and had to go urgently. He was hooked to IV pole. Instead of waiting for me to get hold of urinal, pt. started trying to move into bathroom yelling I gotta go into the bathroom. He then was becoming incontinent of urine, was holding onto bed rail and slipped on wet floor. Pt. assisted back to bed with assist of 3 nurses.No injuries noted. No c/o pain or injury from pt. BP 112/81, HR 144. Dr. Johnson notified with no new orders given. Pt. denied need for any family to be called. Pt. lives alone.
[2017-09-14 06:13] LABS: Hematocrit 23.8 % (40-54); Hemoglobin 7.6 g/dl (13.0-16.5); Mean Corp Hgb Conc 31.9 g/gl (32-36); Mean Corpuscular Hgb 26.8 pg (27.0-32.0); Mean Corpuscular Volume 83.8 fL (80-94); Mean Platelet Vol. 9.7 fl (6.2-12.0); Platelet Count 263 K/mm3 (150-450); RBC Distribution Width CV 17.3 % (11.6-14.6); RBC Distribution Width SD 51.1 fl (35.1-43.9); Red Blood Count 2.84 M/mm3 (4.6-6.2); White Blood Count 13.7 K/mm3 (4.4-11.0)
[2017-09-14 06:14] LABS: Differential Indicated MANUAL DIFF; POSITIVE COUNT YES; POSITIVE DIFFERENTIAL NO; POSITIVE MORPHOLOGY YES
[2017-09-14] MEDS: Nystatin Powder 15gm Bottle 1 APPLIC TOPICAL ×3 (06:18→22:42)
[2017-09-14 06:21] LABS: Bedside Glucose 119 mg/dL (70-110)
[2017-09-14 06:39] LABS: Lymphocyte 5 % (19-41); Metamyelocyte 6 % (0-1); Monocyte 6 % (0-10); Myelocyte 1 (0-0); Neutrophil-Band 8 % (0-5); Neutrophil-Segmented 74 % (47-70); Total Cells Counted 100 (MANUAL DIFF)
[2017-09-14 06:41] LABS: Absolute Lymphocyte Count 0.69 X10^3/ul (0.83-4.51); Absolute Neutrophil Count 12.2 X10^3/uL (2.0-7.7); Lymphocyte # 0.69 X10^3/ul (4.0); Neutrophil # 12.19 X10^3/uL (2.7-7.7)
[2017-09-14 06:42] LABS: Absolute Nucleated RBC Count 0.11 10^3/uL (0-5); Anisocytosis 2+; Macrocytosis RARE; Microcytosis 1+; NRBC Flagged by Analyzer 0.8 % (0-5); Polychromasia RARE
[2017-09-14 06:43] LABS: Anion Gap 8 (5-15); BUN 7 mg/dL (7-18); BUN/Creat Ratio 9.2 RATIO (10-20); Calcium,Total 7.7 mg/dL (8.5-10.1); Chloride 101 mmol/L (98-107); Creatinine, Serum 0.76 mg/dL (0.70-1.30); EST Glomerular Filtration Rate 112 mL/min (>60); Est Glom Filt Rate - Afr Amer 135 mL/min (>60); Estimated Creatinine Clearance 109.39 ml/min; Glucose 103 mg/dL (74-106); Potassium 3.5 mmol/L (3.5-5.1); Sodium Level 134 mmol/L (136-145)
[2017-09-14] MEDS: oxyCODONE 5 MG Tablet 10 MG PO ×3 (08:33→20:15)
[2017-09-14] MEDS: DULoxetine Hcl 30 MG Capsule 90 MG PO (08:34)
[2017-09-14] MEDS: Glucerna Shake 120 ML LIQUID PO ×2 (08:34→11:50)
[2017-09-14] MEDS: Gabapentin 600 MG Tablet PO ×3 (08:34→16:53)
[2017-09-14] MEDS: Enoxaparin 120 MG/0.8 ML Syringe SC ×2 (08:35→22:44)
[2017-09-14] MEDS: 0.9% Normal Saline 1,000 ML 125 ML IV ×3 (08:36→22:55)
--- NOTE | 2017-09-14 09:21 | ECHOD_ITS ---
Reason For Study: A. fib/flutter Procedure This was a 2D Doppler, Color Flow transthoracic echocardiogram. Exam performed portable in patient room. Left Ventricle Normal LV size. Left ventricular systolic function is normal. The estimated ejection fraction is 55 %. Transmitral diastolic flow velocities suggest mild (stage 1) diastolic dysfunction (reversed pattern). No regional wall motion abnormalities noted. Right Ventricle Normal RV size. Normal systolic function. Atria Normal left atrium. Normal right atrium. Mitral Valve Normal mitral valve. Tricuspid Valve Normal tricuspid valve. Mild (1+) tricuspid valve insufficiency. Pulmonary artery systolic pressure is 31 mmHg. Aortic Valve Normal aortic valve. Trisinus/trileaflet aortic valve. Pulmonic Valve Normal pulmonic valve. Great Vessels Normal aortic root. The pulmonary artery is normal size. Normal inferior vena cava. Pericardium/Pleural No pericardial effusion. MMode/2D Measurements & Calculations LVIDd: 4.9 cm IVSd: 0.97 cm Ao root diam: 3.6 cm LVIDs: 3.5 cm LVPWd: 0.98 cm LA dimension: 3.0 cm RVDd: 3.6 cm FS: 27.3 % LAV(MOD-bp): 58.7 ml LA A4 area: 19.6 cm2 RA A4 area: 14.8 cm2 LAV(MOD-bp) Indexed: 25.1 ml/m2 LAV(MOD-sp2): 62.1 ml LAV(MOD-sp4): 55.8 ml Doppler Measurements & Calculations MV E max kushal: 94.0 cm/sec Ao V2 max: 111.3 cm/sec LV V1 max: 99.2 cm/sec Ao max P.0 mmHg LV V1 max P.9 mmHg PA V2 max: 112.6 cm/sec TR max kushal: 256.1 cm/sec TR max P.2 mmHg Interpretation Summary Normal LV size. Left ventricular systolic function is normal. The estimated ejection fraction is 55 %. Transmitral diastolic flow velocities suggest mild (stage 1) diastolic dysfunction (reversed pattern). Structurally normal valves. Ordering Physician: Hang Holly Referring Physician: Dru Gao Performed By: Araceli Cross, DANILO
[2017-09-14] MEDS: Digoxin 250 MCG/ML Ampul IV (10:17)
[2017-09-14] MEDS: 0.9% NaCl VAD Flush 10 ML IV ×2 (10:19→19:54)
[2017-09-14] MEDS: dilTIAZem 25 MG/5 ML Vial 20 MG IV BOLUS (10:24)
[2017-09-14 11:55] LABS: Bedside Glucose 126 mg/dL (70-110)
--- NOTE | 2017-09-14 12:23 | CON.PCM_ITS ---
Reason for Consult Date of Consultation: 09/14/17 Reason for Consultation: Fast heart rate History of Present Illness: The patient is a 57 year old M with past medical history as mentioned above who was referred to the emergency department for evaluation for elevated heart rate and left leg cellulitis by Dr. Sahu after he was seen at his office today for preparation for chemotherapy for undifferentiated liposarcoma of the left groin. The patient stated that his left leg started to swell up 2 days ago, initially started as small red spot with minimal swelling, progressed over the last couple of days very quick to involve the whole left leg. He denied left leg pain. He denies fever or chills. He denied chest pain, palpitation, shortness of breath, dizziness or lightheadedness. 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 He has a history of type 2 diabetes mellitus and he has been on metformin, no hemoglobin A1c available discharge. He had a recent history of extensive DVT of the left lower extremity and he has been on Lovenox shots twice daily. In the emergency department, patient was afebrile, heart rate was in the 150s Blood pressure was borderline but slightly improved after loss of IV fluids. His routine blood work is remarkable for leukocytosis, hemoglobin of 9.1 g/dL, sodium of 129. His lactic acid was 3. Troponin was negative. CT scan demonstrated evidence of metastatic disease but no pulmonary embolism. The patient has been on the telemetry unit and has been having a heart rate in the 140s. I was called today to evaluate the heart rate and noted that it was likely atrial flutter. Past Medical History Allergies/Adverse Reactions: Allergies Iodinated Contrast- Oral and IV Dye [DYEE] Adverse Reaction (Verified 09/11/17 16:42) Nausea Home Medications: Ambulatory Orders Medication Instructions Recorded Cholecalciferol (Vitamin D3) 1,000 unit PO DAILY 09/11/17 [Vitamin D3] Duloxetine Hcl [Cymbalta] 90 mg PO DAILY 09/11/17 Enoxaparin Sodium [Lovenox] 120 mg SQ Q12H 09/11/17 Gabapentin [Neurontin] 600 mg PO TIDCM 09/11/17 Loratadine [Claritin] 10 mg PO DAILY PRN PRN 09/11/17 Metformin HCl [Glucophage Xr] 750 mg PO DAILY 09/11/17 Methadone HCl [Dolophine] 7.5 mg PO Q12H PRN 09/11/17 Ondansetron [Zofran] 8 mg PO Q8H PRN PRN 09/11/17 Oxycodone [Oxyir] 10 mg PO Q4H PRN PRN 09/11/17 Past Medical History (Chronic Problems): Chronic Problems Chronic anemia (Chronic) Type 2 diabetes mellitus (Chronic) 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 Biopsy of the left groin mass. Psychiatric History: Depression - *Family History Maternal History Items: No pertinent history Paternal History Items: No pertinent history Smoking Status: Former smoker Alcohol: None Drugs: None Review of Systems - Review of Systems General: Denies: Fever, Night Sweats, Fatigue Cardiovascular: Denies: Chest Discomfort, Shortness of Breath, Orthopnea, PND, Peripheral Edema, Palpitations, Lightheadedness, Dizziness, Near Syncope, Syncope Respiratory: Denies: Cough, Sputum Production, Hemoptysis Gastrointestinal: Denies: Hematemesis, Hematochezia, Melena Genitourinary: Denies: Dysuria, Hematuria Skin: Denies: Rash Subjectve: Middle-aged man in no distress but looks ill Objective: Vital Signs Temp Pulse Resp BP Pulse Ox 98.5 F 97 16 106/61 100 09/14/17 12:00 09/14/17 12:00 09/14/17 12:00 09/14/17 12:00 09/14/17 12:00 Oxygen Delivery Method Room Air Weight: 261 lb 3.964 oz Body Mass Index (BMI) 37.5 Intake and Output for Last 24 Hours 09/12/17 09/13/17 09/14/17 23:59 23:59 23:59 Intake Total 6551 / 6551 2957 / 2957 2812 / 2812 Output Total 1025 / 1025 975 / 975 1775 / 1775 Balance 5526 / 5526 1981 / 1981 1037 / 1037 General: Awake, Alert, Oriented x 3, Ill Appearing HEENT: PERRL, EOMI, Sclera Non Icteric Neck: Supple, Good ROM, No Lymph Node Enlargement Lungs: Clear to auscultation Cardiovascular: Regular Rhythm, Normal S1, Normal S2, No Murmurs, No Rubs, No Gallops Vascular: No Carotid Bruits, Normal Femoral Pulses, Normal Radial Pulses, Normal Dorsalis Pedal Pulse, Normal Posterior Tibial Pulses Abdomen: Bowel Sounds Present, Soft, Non Tender, No HSM, No Organomegaly Extremities: No Cyanosis, No Clubbing, No edema Neurological: No Focal Motor or Sensory Deficit 09/14/17 05:55: WBC 13.7 H, RBC 2.84 L, Hgb 7.6 L, Hct 23.8 L, MCV 83.8, MCH 26.8 L, MCHC 31.9 L, RDW 17.3 H, RDW Differential 51.1 H, Plt Count 263, MPV 9.7 , Neut % (Auto) Not Reportable, Absolute Neuts (auto) 12.2 H, Total Counted 100 , Neutrophils % (Manual) 74 H, Band Neutrophils % 8 H, Lymphocytes % (Manual) 5 L, Monocytes % (Manual) 6, Metamyelocytes % 6 H, Myelocytes % 1 H, Nucleated RBC % 0.8 09/14/17 05:55: Sodium 134 L, Potassium 3.5, Chloride 101, Carbon Dioxide 25.0, Anion Gap 8, BUN 7, Creatinine 0.76, Est GFR (MDRD) Af Amer 135, Est GFR (MDRD) Non-Af 112, BUN/Creatinine Ratio 9.2 L, Glucose 103, Calcium 7.7 L Rhythm: EKG: ECHO: Stress Test: Cardiac Cath: PCI: CT Surgery: Holter monitor: EPS: PPM: CXR: Chest CT Scan: Assessment/Plan 1. Atrial flutter with a rapid ventricular response rate He appears to be in atrial flutter with rapid ventricular response rate he has been therapeutically anticoagulated he apparently had some heart rate response initially to digoxin and at this time out suggest that we start him on a diltiazem drip with bolus he will continue his anticoagulation with Lovenox. His ejection fraction by echocardiogram is noted to be normal and will continue to treat his underlying clinical condition. Depending on his response to the above further recommendations will be made. Thank you for allowing me to participate in the care of your patient. Please don't hesitate to call if any issues arise
--- NOTE | 2017-09-14 13:28 | PCM.PROGNOTE ---
<Scooter Winter - Last Filed: 09/14/17 13:28> Patient Problems: Active and Suspected Problems Tachycardia (Acute) Severe sepsis (Acute) Left leg cellulitis (Acute) Subjective: Patient reports he feels significantly better today. Pain in his leg is significantly improved and it is somewhat less swollen today. He has no fevers or chills. He has no nausea, vomiting, abdominal pain, diarrhea. His heart is still tachycardic unfortunately despite yesterday's additional digoxin dose. He does report he was on chemotherapy that could potentially cause heart failure, and this was confirmed by Dr. Tobias. Doxorubicin. He tells me he does not have congestive heart failure or arrhythmias, or underlying coronary disease. 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 Prior echoes were done at [facility]. We do not have any on file. Today he will be seen by Dr. Holly who placed him on Cardizem drip and an additional 250 mcg of digoxin ?1. Initially his rhythm did slow down into the 70s, he remained in atrial flutter, after that and at this point his rate is back into the low 100s. Despite this he does not feel any palpitations, lightheadedness, dizziness, or racing heart. He has no chest pain and no shortness of breath. His mental status continues to remain improved. - Physical Exam General: Alert, Oriented x3, Cooperative HEENT: Atraumatic, PERRLA, EOMI, Normocephalic Neck: Supple, No JVD, Negative Carotid Bruits Lungs: Clear to auscultation, Normal air movement Cardiovascular: Regular rate, No murmurs Abdomen: Bowel Sounds Present, Soft, Non Tender Extremities: No edema, Capillary Refill Less than 3 Seconds Skin: No rashes, No breakdown Musculoskeletal: No Tenderness to Palpation of Joints or Extremities Neurological: Cranial nerves II-XII grossly intact Psych/Mental Status: Normal Affect, Appropriate, Alert and oriented to time, place, person, mood and affect Vital Signs Temp Pulse Resp BP Pulse Ox 98.5 F 146 H 23 H 102/55 L 95 09/14/17 12:00 09/14/17 13:00 09/14/17 13:00 09/14/17 13:00 09/14/17 13:00 Oxygen Delivery Method Room Air Weight: 118.5 kg Body Mass Index (BMI) 37.5 Intake and Output for Last 24 Hours 09/12/17 09/13/17 09/14/17 23:59 23:59 23:59 Intake Total 6551 / 6551 2957 / 2957 2812 / 2812 Output Total 1025 / 1025 975 / 975 1775 / 1775 Balance 2626 / 5526 1981 / 1981 1037 / 1037 Microbiology Past 72 Hours 09/11/17 23:50 Gram Stain - Final Wound - Groin Wound Culture - Preliminary Coag Negative Staph Gram positive ton Laboratory Tests Past 24 Hrs 09/13/17 09/14/17 09/14/17 04:35 05:55 05:55 WBC 13.7 H RBC 2.84 L Hgb 7.6 L Hct 23.8 L MCV 83.8 MCH 26.8 L MCHC 31.9 L RDW 17.3 H RDW Differential 51.1 H Plt Count 263 MPV 9.7 Neut % (Auto) Not Reportable Absolute Neuts (auto) 12.2 H Absolute Lymphs (auto) 0.69 L Total Counted 100 Neutrophils % (Manual) 74 H Band Neutrophils % 8 H Lymphocytes % (Manual) 5 L Monocytes % (Manual) 6 Metamyelocytes % 6 H Myelocytes % 1 H Nucleated RBC % 0.8 Differential Comment Diff Path Review Reviewed May foll Polychromasia RARE Anisocytosis 2+ Microcytosis 1+ Macrocytosis RARE Absolute Retic 0.11 Sodium 134 L Potassium 3.5 Chloride 101 Carbon Dioxide 25.0 Anion Gap 8 BUN 7 Creatinine 0.76 Estim Creat Clear Calc 109.39 Est GFR (MDRD) Af Amer 135 Est GFR (MDRD) Non-Af 112 BUN/Creatinine Ratio 9.2 L Glucose 103 Calcium 7.7 L POC Glucose 09/14/17 09/14/17 09/13/17 11:48 06:06 23:10 POC Glucose 126 H 119 H 118 H 09/13/17 16:37 POC Glucose 152 H Medical Necessity - Tobacco Use Smoking Status: Former smoker Assessment/Plan Active and Suspected Problems Tachycardia (Acute) Severe sepsis (Acute) Left leg cellulitis (Acute) 1. Acute severe sepsis 2/2 recurrent LLE cellulitis - continue unasyn. Afebrile, leukocytosis improved. Tachycardia continues, care as below. Wound culture was taken from his intertrigo and has coag negative staph and gram-positive rods suggestive of a diphtheroid, however the relevance of which is questionable. The cellulitic changes of his left lower extremity also appear improved. 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 Blood Cultures are negative. 2. DVT LLE - home lovenox 3. Atrial flutter with rapid ventricular response-cardiology now on board, back on Cardizem drip and received additional 250 mics of digoxin. Will also obtain an echocardiogram.. s/p cardizem and digoxin. He remains on and will return home on therapeutic Lovenox. Cardiology is considering a cardioversion on Saturday. 4. 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 Sahu. last chemo 08.30.17. Next cycle planned for this Saturday. He has had chemotherapy, radiation. He tells me that he was not a candidate for surgery, thusly it is likely terminal. He however, wants to remain full code per our discussion yesterday as he is unsure what he wants done if he codes. He is currently considering his advance directives and will with input from his family. -I spoke with Dr. Sahu this morning who is planning on putting him back on chemotherapy after discharge. He did tell me that he had prior been on chemotherapy agents that could potentially cause heart failure. 5. Normocytic anemia -iron panels nonspecific. Remains significantly anemic. This is likely contributing to his tachycardia as well. No need for transfusion at this point. 6. Hyponatremia improved - ? SIADH 2/2 oncologic process. 7. DMt2 - metformin held. SSI. DVT ppx: lovenox - therapeutic dose DC planning: Pending rhythm control and potential cardioversion. Cellulitis is improving.Blood blood cultures are negative so he will likely go home on oral Augmentin. This patient was seen by Scooter Winter PA-C under the supervision of Doctor Arriaza. <Bhavin Arriaza - Last Filed: 09/14/17 14:16> Subjective: Denies any complaints. Denies any palpitations no shortness of breath. Patient's heart rate has gone by backup and did require more digoxin. - Physical Exam General: Alert, Cooperative HEENT: Atraumatic, Normocephalic Lungs: Clear to auscultation, Normal air movement, No rhonchi, No wheeze Cardiovascular: Regular rate, Regular Rhythm, Normal S1, Normal S2 Abdomen: Bowel Sounds Present, Soft, Obese Extremities: Edema Skin: - - Decreased erythema of the left lower extremity Vital Signs Temp Pulse Resp BP Pulse Ox 36.9 C 146 H 23 H 102/55 L 95 09/14/17 12:00 09/14/17 13:00 09/14/17 13:00 09/14/17 13:00 09/14/17 13:00 Oxygen Delivery Method Room Air Weight: 118.5 kg Body Mass Index (BMI) 37.5 Intake and Output for Last 24 Hours 09/12/17 09/13/17 09/14/17 23:59 23:59 23:59 Intake Total 6551 / 6551 2957 / 2957 2812 / 2812 Output Total 1025 / 1025 975 / 975 1775 / 1775 Balance 2426 / 5531 1981 / 1981 1037 / 1037 Microbiology Past 72 Hours 09/11/17 23:50 Gram Stain - Final Wound - Groin Wound Culture - Preliminary Coag Negative Staph Gram positive ton Laboratory Tests Past 24 Hrs 09/13/17 09/14/17 09/14/17 04:35 05:55 05:55 WBC 13.7 H RBC 2.84 L Hgb 7.6 L Hct 23.8 L MCV 83.8 MCH 26.8 L MCHC 31.9 L RDW 17.3 H RDW Differential 51.1 H Plt Count 263 MPV 9.7 Neut % (Auto) Not Reportable Absolute Neuts (auto) 12.2 H Absolute Lymphs (auto) 0.69 L Total Counted 100 Neutrophils % (Manual) 74 H Band Neutrophils % 8 H Lymphocytes % (Manual) 5 L Monocytes % (Manual) 6 Metamyelocytes % 6 H Myelocytes % 1 H Nucleated RBC % 0.8 Differential Comment Diff Path Review Reviewed May foll Polychromasia RARE Anisocytosis 2+ Microcytosis 1+ Macrocytosis RARE Absolute Retic 0.11 Sodium 134 L Potassium 3.5 Chloride 101 Carbon Dioxide 25.0 Anion Gap 8 BUN 7 Creatinine 0.76 Estim Creat Clear Calc 109.39 Est GFR (MDRD) Af Amer 135 Est GFR (MDRD) Non-Af 112 BUN/Creatinine Ratio 9.2 L Glucose 103 Calcium 7.7 L POC Glucose 09/14/17 09/14/17 09/13/17 11:48 06:06 23:10 POC Glucose 126 H 119 H 118 H 09/13/17 16:37 POC Glucose 152 H Assessment/Plan By the physician respiratory therapist assistant. 1. Acute severe sepsis: Present on arrival Resolved Canary to cellulitis 2. Left lower extremity cellulitis Presumed streptococcal Improving Continue Unasyn 3. SVT: Overall improved. Patient did receive Cardizem and then digoxin. To get worse again and is now on a diltiazem drip. Heart rate slightly gone u recent will give the patient additional dose of digoxin and monitor. Patient is asymptomatic. 4. Stage IV liposarcoma Follow-up with oncology. Further goals of care will need to be further addressed with oncology. 5. Venous thromboembolic disease Malignancy induced and on weight-based Lovenox Code Visit Inpatient E&M: 32435 Subs Hosp L2
--- NOTE | 2017-09-14 13:36 | PN_ITS ---
<Scooter Winter - Last Filed: 09/14/17 13:28> Patient Problems: Active and Suspected Problems Tachycardia (Acute) Severe sepsis (Acute) Left leg cellulitis (Acute) Subjective: Patient reports he feels significantly better today. Pain in his leg is significantly improved and it is somewhat less swollen today. He has no fevers or chills. He has no nausea, vomiting, abdominal pain, diarrhea. His heart is still tachycardic unfortunately despite yesterday's additional digoxin dose. He does report he was on chemotherapy that could potentially cause heart failure , and this was confirmed by Dr. Tobias. Doxorubicin. He tells me he does not have congestive heart failure or arrhythmias, or underlying coronary disease. He does not have a capsule filler. Prior echoes were done at [facility]. We do not have any on file. Today he will be seen by Dr. Holly who placed him on Cardizem drip and an additional 250 mcg of digoxin ?1. Initially his rhythm did slow down into the 70s, he remained in atrial flutter, after that and at this point his rate is back into the low 100s. Despite this he does not feel any palpitations, lightheadedness, dizziness, or racing heart. He has no chest pain and no shortness of breath. His mental status continues to remain improved. - Physical Exam General: Alert, Oriented x3, Cooperative HEENT: Atraumatic, PERRLA, EOMI, Normocephalic Neck: Supple, No JVD, Negative Carotid Bruits Lungs: Clear to auscultation, Normal air movement Cardiovascular: Regular rate, No murmurs Abdomen: Bowel Sounds Present, Soft, Non Tender Extremities: No edema, Capillary Refill Less than 3 Seconds Skin: No rashes, No breakdown Musculoskeletal: No Tenderness to Palpation of Joints or Extremities Neurological: Cranial nerves II-XII grossly intact Psych/Mental Status: Normal Affect, Appropriate, Alert and oriented to time, place, person, mood and affect Vital Signs Temp Pulse Resp BP Pulse Ox 98.5 F 146 H 23 H 102/55 L 95 09/14/17 12:00 09/14/17 13:00 09/14/17 13:00 09/14/17 13:00 09/14/17 13:00 Oxygen Delivery Method Room Air Weight: 118.5 kg Body Mass Index (BMI) 37.5 Intake and Output for Last 24 Hours 09/12/17 09/13/17 09/14/17 23:59 23:59 23:59 Intake Total 6551 / 6551 2957 / 2957 2812 / 2812 Output Total 1025 / 1025 975 / 975 1775 / 1775 Balance 7926 / 5526 1981 / 1981 1037 / 1037 Microbiology Past 72 Hours 09/11/17 23:50 Gram Stain - Final Wound - Groin Wound Culture - Preliminary Coag Negative Staph Gram positive tno Laboratory Tests Past 24 Hrs 09/13/17 09/14/17 09/14/17 04:35 05:55 05:55 WBC 13.7 H RBC 2.84 L Hgb 7.6 L Hct 23.8 L MCV 83.8 MCH 26.8 L MCHC 31.9 L RDW 17.3 H RDW Differential 51.1 H Plt Count 263 MPV 9.7 Neut % (Auto) Not Reportable Absolute Neuts (auto) 12.2 H Absolute Lymphs (auto) 0.69 L Total Counted 100 Neutrophils % (Manual) 74 H Band Neutrophils % 8 H Lymphocytes % (Manual) 5 L Monocytes % (Manual) 6 Metamyelocytes % 6 H Myelocytes % 1 H Nucleated RBC % 0.8 Differential Comment Diff Path Review Reviewed May foll Polychromasia RARE Anisocytosis 2+ Microcytosis 1+ Macrocytosis RARE Absolute Retic 0.11 Sodium 134 L Potassium 3.5 Chloride 101 Carbon Dioxide 25.0 Anion Gap 8 BUN 7 Creatinine 0.76 Estim Creat Clear Calc 109.39 Est GFR (MDRD) Af Amer 135 Est GFR (MDRD) Non-Af 112 BUN/Creatinine Ratio 9.2 L Glucose 103 Calcium 7.7 L POC Glucose 09/14/17 09/14/17 09/13/17 11:48 06:06 23:10 POC Glucose 126 H 119 H 118 H 09/13/17 16:37 POC Glucose 152 H Medical Necessity - Tobacco Use Smoking Status: Former smoker Assessment/Plan Active and Suspected Problems Tachycardia (Acute) Severe sepsis (Acute) Left leg cellulitis (Acute) 1. Acute severe sepsis 2/2 recurrent LLE cellulitis - continue unasyn. Afebrile , leukocytosis improved. Tachycardia continues, care as below. Wound culture was taken from his intertrigo and has coag negative staph and gram-positive rods suggestive of a diphtheroid, however the relevance of which is questionable. The cellulitic changes of his left lower extremity also appear improved. 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 Blood Cultures are negative. 2. DVT LLE - home lovenox 3. Atrial flutter with rapid ventricular response-cardiology now on board, back on Cardizem drip and received additional 250 mics of digoxin. Will also obtain an echocardiogram.. s/p cardizem and digoxin. He remains on and will return home on therapeutic Lovenox. Cardiology is considering a cardioversion on Saturday. 4. 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 Sahu. last chemo 08.30.17. Next cycle planned for this Saturday. He has had chemotherapy , radiation. He tells me that he was not a candidate for surgery, thusly it is likely terminal. He however, wants to remain full code per our discussion yesterday as he is unsure what he wants done if he codes. He is currently considering his advance directives and will with input from his family. -I spoke with Dr. Sahu this morning who is planning on putting him back on chemotherapy after discharge. He did tell me that he had prior been on chemotherapy agents that could potentially cause heart failure. 5. Normocytic anemia -iron panels nonspecific. Remains significantly anemic. This is likely contributing to his tachycardia as well. No need for transfusion at this point. 6. Hyponatremia improved - ? SIADH 2/2 oncologic process. 7. DMt2 - metformin held. SSI. DVT ppx: lovenox - therapeutic dose DC planning: Pending rhythm control and potential cardioversion. Cellulitis is improving.Blood blood cultures are negative so he will likely go home on oral Augmentin. This patient was seen by Scooter Winter PA-C under the supervision of Doctor Arriaza. <Bhavin Arriaza - Last Filed: 09/14/17 14:16> Subjective: Denies any complaints. Denies any palpitations no shortness of breath. Patient 's heart rate has gone by backup and did require more digoxin. - Physical Exam General: Alert, Cooperative HEENT: Atraumatic, Normocephalic Lungs: Clear to auscultation, Normal air movement, No rhonchi, No wheeze Cardiovascular: Regular rate, Regular Rhythm, Normal S1, Normal S2 Abdomen: Bowel Sounds Present, Soft, Obese Extremities: Edema Skin: - - Decreased erythema of the left lower extremity Vital Signs Temp Pulse Resp BP Pulse Ox 36.9 C 146 H 23 H 102/55 L 95 09/14/17 12:00 09/14/17 13:00 09/14/17 13:00 09/14/17 13:00 09/14/17 13:00 Oxygen Delivery Method Room Air Weight: 118.5 kg Body Mass Index (BMI) 37.5 Intake and Output for Last 24 Hours 09/12/17 09/13/17 09/14/17 23:59 23:59 23:59 Intake Total 6551 / 6551 2957 / 2957 2812 / 2812 Output Total 1025 / 1025 975 / 975 1775 / 1775 Balance 1026 / 5582 1981 / 1981 1037 / 1037 Microbiology Past 72 Hours 09/11/17 23:50 Gram Stain - Final Wound - Groin Wound Culture - Preliminary Coag Negative Staph Gram positive ton Laboratory Tests Past 24 Hrs 09/13/17 09/14/17 09/14/17 04:35 05:55 05:55 WBC 13.7 H RBC 2.84 L Hgb 7.6 L Hct 23.8 L MCV 83.8 MCH 26.8 L MCHC 31.9 L RDW 17.3 H RDW Differential 51.1 H Plt Count 263 MPV 9.7 Neut % (Auto) Not Reportable Absolute Neuts (auto) 12.2 H Absolute Lymphs (auto) 0.69 L Total Counted 100 Neutrophils % (Manual) 74 H Band Neutrophils % 8 H Lymphocytes % (Manual) 5 L Monocytes % (Manual) 6 Metamyelocytes % 6 H Myelocytes % 1 H Nucleated RBC % 0.8 Differential Comment Diff Path Review Reviewed May foll Polychromasia RARE Anisocytosis 2+ Microcytosis 1+ Macrocytosis RARE Absolute Retic 0.11 Sodium 134 L Potassium 3.5 Chloride 101 Carbon Dioxide 25.0 Anion Gap 8 BUN 7 Creatinine 0.76 Estim Creat Clear Calc 109.39 Est GFR (MDRD) Af Amer 135 Est GFR (MDRD) Non-Af 112 BUN/Creatinine Ratio 9.2 L Glucose 103 Calcium 7.7 L POC Glucose 09/14/17 09/14/17 09/13/17 11:48 06:06 23:10 POC Glucose 126 H 119 H 118 H 09/13/17 16:37 POC Glucose 152 H Assessment/Plan By the physician assistant to the dean. 1. Acute severe sepsis: * Present on arrival * Resolved * Canary to cellulitis 2. Left lower extremity cellulitis * Presumed streptococcal * Improving * Continue Unasyn 3. SVT: * Overall improved. Patient did receive Cardizem and then digoxin. * To get worse again and is now on a diltiazem drip. * Heart rate slightly gone u recent will give the patient additional dose of digoxin and monitor. Patient is asymptomatic. 4. Stage IV liposarcoma * Follow-up with oncology. Further goals of care will need to be further addressed with oncology. 5. Venous thromboembolic disease * Malignancy induced and on weight-based Lovenox Code Visit Inpatient E&M: 80085 Subs Hosp L2
[2017-09-14 16:30] LABS: Bedside Glucose 170 mg/dL (70-110)
[2017-09-14 23:05] LABS: Bedside Glucose 149 mg/dL (70-110)
[2017-09-15] VITALS (28 sets, daily range): BP systolic 90–115; BP diastolic 54–79; PULSE 73–104; RESP 12–21; TEMP 36.3–37.1; O2SAT 95–100
[2017-09-15] MEDS: oxyCODONE 5 MG Tablet 10 MG PO ×4 (03:59→18:03)
[2017-09-15] MEDS: 0.9% NaCl VAD Flush 10 ML IV ×3 (05:43→05:51)
[2017-09-15] MEDS: Nystatin Powder 15gm Bottle 1 APPLIC TOPICAL ×3 (05:48→22:42)
[2017-09-15] MEDS: 0.9% Normal Saline 1,000 ML 125 ML IV (05:50)
[2017-09-15 06:16] LABS: Anion Gap 8 (5-15); BUN 6 mg/dL (7-18); BUN/Creat Ratio 10.4 RATIO (10-20); Chloride 105 mmol/L (98-107); Creatinine, Serum 0.58 mg/dL (0.70-1.30); EST Glomerular Filtration Rate 153 mL/min (>60); Est Glom Filt Rate - Afr Amer 185 mL/min (>60); Estimated Creatinine Clearance 143.34 ml/min; Glucose 125 mg/dL (74-106); Potassium 3.4 mmol/L (3.5-5.1); Sodium Level 138 mmol/L (136-145)
[2017-09-15 06:38] LABS: Hematocrit 23.3 % (40-54); Hemoglobin 7.3 g/dl (13.0-16.5); Mean Corp Hgb Conc 31.3 g/gl (32-36); Mean Corpuscular Hgb 26.7 pg (27.0-32.0); Mean Corpuscular Volume 85.3 fL (80-94); Mean Platelet Vol. 9.6 fl (6.2-12.0); Platelet Count 273 K/mm3 (150-450); RBC Distribution Width CV 18.2 % (11.6-14.6); RBC Distribution Width SD 52.2 fl (35.1-43.9); Red Blood Count 2.73 M/mm3 (4.6-6.2); White Blood Count 13.3 K/mm3 (4.4-11.0)
[2017-09-15 06:42] LABS: Differential Indicated MANUAL DIFF; POSITIVE COUNT YES; POSITIVE DIFFERENTIAL NO; POSITIVE MORPHOLOGY YES
[2017-09-15 07:01] LABS: Bedside Glucose 115 mg/dL (70-110)
[2017-09-15 07:33] LABS: Lymphocyte 3 % (19-41); Metamyelocyte 3 % (0-1); Monocyte 9 % (0-10); Myelocyte 1 (0-0); Neutrophil-Band 13 % (0-5); Neutrophil-Segmented 71 % (47-70); Total Cells Counted 100 (MANUAL DIFF)
[2017-09-15 07:38] LABS: Absolute Neutrophil Count 11.7 X10^3/uL (2.0-7.7)
[2017-09-15] MEDS: DULoxetine Hcl 30 MG Capsule 90 MG PO (08:06)
[2017-09-15] MEDS: Gabapentin 600 MG Tablet PO ×3 (08:06→17:33)
[2017-09-15] MEDS: Glucerna Shake 120 ML LIQUID PO ×3 (08:07→17:33)
[2017-09-15] MEDS: Enoxaparin 120 MG/0.8 ML Syringe SC ×2 (08:07→22:54)
[2017-09-15 09:30] LABS: Magnesium 1.3 mg/dL (1.6-2.6)
--- NOTE | 2017-09-15 09:35 | PCM.PROGNOTE ---
<Scooter Winter - Last Filed: 09/15/17 09:35> Patient Problems: Active and Suspected Problems Tachycardia (Acute) Severe sepsis (Acute) Left leg cellulitis (Acute) Subjective: Pt feels that he continues to improve. Again, no palp/racing/dizzy/LH. No CP, SOB. Pain in leg has improved. Swelling remains about the same in the left leg. No fever/chills overnight. - Physical Exam General: Alert, Oriented x3, Cooperative HEENT: Atraumatic, PERRLA, EOMI, Normocephalic Neck: Supple, No JVD, Negative Carotid Bruits Lungs: Clear to auscultation, Normal air movement Cardiovascular: No murmurs, Irregular Rate Abdomen: Bowel Sounds Present, Soft, Non Tender Extremities: No edema, Capillary Refill Less than 3 Seconds, Edema - LLE, still warm to touch, erythema much less pronounced. Skin: No rashes, No breakdown Musculoskeletal: No Tenderness to Palpation of Joints or Extremities Neurological: Cranial nerves II-XII grossly intact Psych/Mental Status: Normal Affect, Appropriate, Alert and oriented to time, place, person, mood and affect Vital Signs Temp Pulse Resp BP Pulse Ox 98.7 F 87 16 92/54 L 100 09/15/17 05:00 09/15/17 09:00 09/15/17 09:00 09/15/17 09:00 09/15/17 09:00 Oxygen Delivery Method Room Air Weight: 118.5 kg Body Mass Index (BMI) 37.5 Intake and Output for Last 24 Hours 09/13/17 09/14/17 09/15/17 23:59 23:59 23:59 Intake Total 2957 / 2957 4787.1 / 4787.1 782.7 / 782.7 Output Total 975 / 975 2049 / 2049 Balance 1981 / 1981 2737.1 / 2737.1 782.7 / 782.7 Microbiology Past 72 Hours 09/11/17 23:50 Gram Stain - Final Wound - Groin Wound Culture - Final Coag Negative Staph Gram positive ton Laboratory Tests Past 24 Hrs 09/15/17 09/15/17 09/15/17 05:40 05:40 05:40 WBC 13.3 H RBC 2.73 L Hgb 7.3 L Hct 23.3 L MCV 85.3 MCH 26.7 L MCHC 31.3 L RDW 18.2 H RDW Differential 52.2 H Plt Count 273 MPV 9.6 Neut % (Auto) Not Reportable Absolute Neuts (auto) 11.7 H Absolute Lymphs (auto) 0.40 L Total Counted 100 Neutrophils % (Manual) 71 H Band Neutrophils % 13 H Lymphocytes % (Manual) 3 L Monocytes % (Manual) 9 Metamyelocytes % 3 H Myelocytes % 1 H Diff Path Review May foll Sodium 138 Potassium 3.4 L Chloride 105 Carbon Dioxide 25.0 Anion Gap 8 BUN 6 L Creatinine 0.58 L Estim Creat Clear Calc 143.34 Est GFR (MDRD) Af Amer 185 Est GFR (MDRD) Non-Af 153 BUN/Creatinine Ratio 10.4 Glucose 125 H Calcium 7.0 L Magnesium 1.3 L POC Glucose 09/15/17 09/14/17 09/14/17 06:55 22:37 16:26 POC Glucose 115 H 149 H 170 H 09/14/17 11:48 POC Glucose 126 H Medical Necessity - Tobacco Use Smoking Status: Former smoker Assessment/Plan Active and Suspected Problems Tachycardia (Acute) Severe sepsis (Acute) Left leg cellulitis (Acute) 1. Acute severe sepsis 2/2 recurrent LLE cellulitis - Presumed strep - continue unasyn. Afebrile, leukocytosis improved. Wound culture was taken from his intertrigo and has coag negative staph and gram-positive rods suggestive of a diphtheroid, however the relevance of which is questionable. The cellulitic changes of his left lower extremity also appear improved. 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 Blood Cultures are negative. 2. DVT LLE - home lovenox 3. Atrial flutter with rapid ventricular response- Rate is now controlled. on cardizem drip. Systolic remains in 90s. He is asymptomatic. Cardiology is considering a cardioversion on Saturday. -Echo EF 55%, stage 1 diastolic dysfunction, PASP 31 mmHg. -Decrease IV fluid rate 4. 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 Sahu. last chemo 08.30.17. Next cycle planned for this Saturday. He has had chemotherapy, radiation. He tells me that he was not a candidate for surgery, thusly it is likely terminal. He however, wants to remain full code per our discussion yesterday as he is unsure what he wants done if he codes. He is currently considering his advance directives and will with input from his family. -I spoke with Dr. Sahu this morning who is planning on putting him back on chemotherapy after discharge. He did tell me that he had prior been on chemotherapy agents that could potentially cause heart failure. 5. Normocytic anemia -iron panels nonspecific. Remains significantly anemic. Continues to slightly worsen, no bleeding noted, partially dilutional 2/2 IV fluids. No need for transfusion at this point. 6. Hypokalemia/Hypomagnesemia - repleted. Hyponat resolved. 7. DMt2 - metformin held. SSI. DVT ppx: lovenox - therapeutic dose DC planning: Pending rhythm control and potential cardioversion. Cellulitis is improving.Blood blood cultures are negative so he will likely go home on oral Augmentin. This patient was seen by Scooter Winter PA-C under the supervision of Doctor Sofiya. <Bhavin Arriaza - Last Filed: 09/15/17 12:23> - Physical Exam General: Alert, Cooperative HEENT: Atraumatic, Normocephalic Lungs: Clear to auscultation, Normal air movement, No rhonchi, No wheeze Cardiovascular: Regular rate, Regular Rhythm, Normal S1, Normal S2 Abdomen: Bowel Sounds Present, Soft, Non Tender, Non-Distended Skin: No rashes, No breakdown Psych/Mental Status: Normal Affect Vital Signs Temp Pulse Resp BP Pulse Ox 36.9 C 104 H 16 115/62 100 09/15/17 11:00 09/15/17 12:00 09/15/17 12:00 09/15/17 12:00 09/15/17 12:00 Oxygen Delivery Method Room Air Weight: 118.5 kg Body Mass Index (BMI) 37.5 Intake and Output for Last 24 Hours 09/13/17 09/14/17 09/15/17 23:59 23:59 23:59 Intake Total 2957 / 2957 4787.1 / 4787.1 1702.7 / 1702.7 Output Total 975 / 975 2049 / 2049 400 / 400 Balance 1981 / 1981 2737.1 / 2737.1 1302.7 / 1302.7 Microbiology Past 72 Hours 09/11/17 23:50 Gram Stain - Final Wound - Groin Wound Culture - Final Coag Negative Staph Gram positive tno Laboratory Tests Past 24 Hrs 09/15/17 09/15/17 09/15/17 05:40 05:40 05:40 WBC 13.3 H RBC 2.73 L Hgb 7.3 L Hct 23.3 L MCV 85.3 MCH 26.7 L MCHC 31.3 L RDW 18.2 H RDW Differential 52.2 H Plt Count 273 MPV 9.6 Neut % (Auto) Not Reportable Absolute Neuts (auto) 11.7 H Absolute Lymphs (auto) 0.40 L Total Counted 100 Neutrophils % (Manual) 71 H Band Neutrophils % 13 H Lymphocytes % (Manual) 3 L Monocytes % (Manual) 9 Metamyelocytes % 3 H Myelocytes % 1 H Diff Path Review May foll Sodium 138 Potassium 3.4 L Chloride 105 Carbon Dioxide 25.0 Anion Gap 8 BUN 6 L Creatinine 0.58 L Estim Creat Clear Calc 143.34 Est GFR (MDRD) Af Amer 185 Est GFR (MDRD) Non-Af 153 BUN/Creatinine Ratio 10.4 Glucose 125 H Calcium 7.0 L Magnesium 1.3 L POC Glucose 09/15/17 09/15/17 09/14/17 11:29 06:55 22:37 POC Glucose 166 H 115 H 149 H 09/14/17 16:26 POC Glucose 170 H Assessment/Plan Patient seen and examined independently. i agree with above note. 1. Acute severe sepsis: Present on arrival Resolved Canary to cellulitis 2. Left lower extremity cellulitis Presumed streptococcal Improving Continue Unasyn 3. atrial flutter: Overall improved. Patient did receive Cardizem and then digoxin. To get worse again and is now on a diltiazem drip. Heart rate slightly gone u recent will give the patient additional dose of digoxin and monitor. Patient is asymptomatic. Plan is to continue cardizem gtt and then cardioversion on 09/16 4. Stage IV liposarcoma Follow-up with oncology. Further goals of care will need to be further addressed with oncology. 5. Venous thromboembolic disease Malignancy induced and on weight-based Lovenox Code Visit Inpatient E&M: [id number] Subs Hosp L2
--- NOTE | 2017-09-15 09:40 | PN_ITS ---
<Scooter Winter - Last Filed: 09/15/17 09:35> Patient Problems: Active and Suspected Problems Tachycardia (Acute) Severe sepsis (Acute) Left leg cellulitis (Acute) Subjective: Pt feels that he continues to improve. Again, no palp/racing/dizzy/LH. No CP, SOB. Pain in leg has improved. Swelling remains about the same in the left leg. No fever/chills overnight. - Physical Exam General: Alert, Oriented x3, Cooperative HEENT: Atraumatic, PERRLA, EOMI, Normocephalic Neck: Supple, No JVD, Negative Carotid Bruits Lungs: Clear to auscultation, Normal air movement Cardiovascular: No murmurs, Irregular Rate Abdomen: Bowel Sounds Present, Soft, Non Tender Extremities: No edema, Capillary Refill Less than 3 Seconds, Edema - LLE, still warm to touch, erythema much less pronounced. Skin: No rashes, No breakdown Musculoskeletal: No Tenderness to Palpation of Joints or Extremities Neurological: Cranial nerves II-XII grossly intact Psych/Mental Status: Normal Affect, Appropriate, Alert and oriented to time, place, person, mood and affect Vital Signs Temp Pulse Resp BP Pulse Ox 98.7 F 87 16 92/54 L 100 09/15/17 05:00 09/15/17 09:00 09/15/17 09:00 09/15/17 09:00 09/15/17 09:00 Oxygen Delivery Method Room Air Weight: 118.5 kg Body Mass Index (BMI) 37.5 Intake and Output for Last 24 Hours 09/13/17 09/14/17 09/15/17 23:59 23:59 23:59 Intake Total 2957 / 2957 4787.1 / 4787.1 782.7 / 782.7 Output Total 975 / 975 2049 / 2049 Balance 1981 / 1981 2737.1 / 2737.1 782.7 / 782.7 Microbiology Past 72 Hours 09/11/17 23:50 Gram Stain - Final Wound - Groin Wound Culture - Final Coag Negative Staph Gram positive ton Laboratory Tests Past 24 Hrs 09/15/17 09/15/17 09/15/17 05:40 05:40 05:40 WBC 13.3 H RBC 2.73 L Hgb 7.3 L Hct 23.3 L MCV 85.3 MCH 26.7 L MCHC 31.3 L RDW 18.2 H RDW Differential 52.2 H Plt Count 273 MPV 9.6 Neut % (Auto) Not Reportable Absolute Neuts (auto) 11.7 H Absolute Lymphs (auto) 0.40 L Total Counted 100 Neutrophils % (Manual) 71 H Band Neutrophils % 13 H Lymphocytes % (Manual) 3 L Monocytes % (Manual) 9 Metamyelocytes % 3 H Myelocytes % 1 H Diff Path Review May foll Sodium 138 Potassium 3.4 L Chloride 105 Carbon Dioxide 25.0 Anion Gap 8 BUN 6 L Creatinine 0.58 L Estim Creat Clear Calc 143.34 Est GFR (MDRD) Af Amer 185 Est GFR (MDRD) Non-Af 153 BUN/Creatinine Ratio 10.4 Glucose 125 H Calcium 7.0 L Magnesium 1.3 L POC Glucose 09/15/17 09/14/17 09/14/17 06:55 22:37 16:26 POC Glucose 115 H 149 H 170 H 09/14/17 11:48 POC Glucose 126 H Medical Necessity - Tobacco Use Smoking Status: Former smoker Assessment/Plan Active and Suspected Problems Tachycardia (Acute) Severe sepsis (Acute) Left leg cellulitis (Acute) 1. Acute severe sepsis 2/2 recurrent LLE cellulitis - Presumed strep - continue unasyn. Afebrile, leukocytosis improved. Wound culture was taken from his intertrigo and has coag negative staph and gram-positive rods suggestive of a diphtheroid, however the relevance of which is questionable. The cellulitic changes of his left lower extremity also appear improved. 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 Blood Cultures are negative. 2. DVT LLE - home lovenox 3. Atrial flutter with rapid ventricular response- Rate is now controlled. on cardizem drip. Systolic remains in 90s. He is asymptomatic. Cardiology is considering a cardioversion on Saturday. -Echo EF 55%, stage 1 diastolic dysfunction, PASP 31 mmHg. -Decrease IV fluid rate 4. 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 Sahu. last chemo 08.30.17. Next cycle planned for this Saturday. He has had chemotherapy , radiation. He tells me that he was not a candidate for surgery, thusly it is likely terminal. He however, wants to remain full code per our discussion yesterday as he is unsure what he wants done if he codes. He is currently considering his advance directives and will with input from his family. -I spoke with Dr. Sahu this morning who is planning on putting him back on chemotherapy after discharge. He did tell me that he had prior been on chemotherapy agents that could potentially cause heart failure. 5. Normocytic anemia -iron panels nonspecific. Remains significantly anemic. Continues to slightly worsen, no bleeding noted, partially dilutional 2/2 IV fluids. No need for transfusion at this point. 6. Hypokalemia/Hypomagnesemia - repleted. Hyponat resolved. 7. DMt2 - metformin held. SSI. DVT ppx: lovenox - therapeutic dose DC planning: Pending rhythm control and potential cardioversion. Cellulitis is improving.Blood blood cultures are negative so he will likely go home on oral Augmentin. This patient was seen by Scooter Winter PA-C under the supervision of Doctor Sofiya. <Bhavin Arriaza - Last Filed: 09/15/17 12:23> - Physical Exam General: Alert, Cooperative HEENT: Atraumatic, Normocephalic Lungs: Clear to auscultation, Normal air movement, No rhonchi, No wheeze Cardiovascular: Regular rate, Regular Rhythm, Normal S1, Normal S2 Abdomen: Bowel Sounds Present, Soft, Non Tender, Non-Distended Skin: No rashes, No breakdown Psych/Mental Status: Normal Affect Vital Signs Temp Pulse Resp BP Pulse Ox 36.9 C 104 H 16 115/62 100 09/15/17 11:00 09/15/17 12:00 09/15/17 12:00 09/15/17 12:00 09/15/17 12:00 Oxygen Delivery Method Room Air Weight: 118.5 kg Body Mass Index (BMI) 37.5 Intake and Output for Last 24 Hours 09/13/17 09/14/17 09/15/17 23:59 23:59 23:59 Intake Total 2957 / 2957 4787.1 / 4787.1 1702.7 / 1702.7 Output Total 975 / 975 2049 / 2049 400 / 400 Balance 1981 / 1981 2737.1 / 2737.1 1302.7 / 1302.7 Microbiology Past 72 Hours 09/11/17 23:50 Gram Stain - Final Wound - Groin Wound Culture - Final Coag Negative Staph Gram positive ton Laboratory Tests Past 24 Hrs 09/15/17 09/15/17 09/15/17 05:40 05:40 05:40 WBC 13.3 H RBC 2.73 L Hgb 7.3 L Hct 23.3 L MCV 85.3 MCH 26.7 L MCHC 31.3 L RDW 18.2 H RDW Differential 52.2 H Plt Count 273 MPV 9.6 Neut % (Auto) Not Reportable Absolute Neuts (auto) 11.7 H Absolute Lymphs (auto) 0.40 L Total Counted 100 Neutrophils % (Manual) 71 H Band Neutrophils % 13 H Lymphocytes % (Manual) 3 L Monocytes % (Manual) 9 Metamyelocytes % 3 H Myelocytes % 1 H Diff Path Review May foll Sodium 138 Potassium 3.4 L Chloride 105 Carbon Dioxide 25.0 Anion Gap 8 BUN 6 L Creatinine 0.58 L Estim Creat Clear Calc 143.34 Est GFR (MDRD) Af Amer 185 Est GFR (MDRD) Non-Af 153 BUN/Creatinine Ratio 10.4 Glucose 125 H Calcium 7.0 L Magnesium 1.3 L POC Glucose 09/15/17 09/15/17 09/14/17 11:29 06:55 22:37 POC Glucose 166 H 115 H 149 H 09/14/17 16:26 POC Glucose 170 H Assessment/Plan Patient seen and examined independently. i agree with above note. 1. Acute severe sepsis: * Present on arrival * Resolved * Canary to cellulitis 2. Left lower extremity cellulitis * Presumed streptococcal * Improving * Continue Unasyn 3. atrial flutter: * Overall improved. Patient did receive Cardizem and then digoxin. * To get worse again and is now on a diltiazem drip. * Heart rate slightly gone u recent will give the patient additional dose of digoxin and monitor. Patient is asymptomatic. * Plan is to continue cardizem gtt and then cardioversion on 09/16 4. Stage IV liposarcoma * Follow-up with oncology. Further goals of care will need to be further addressed with oncology. 5. Venous thromboembolic disease * Malignancy induced and on weight-based Lovenox Code Visit Inpatient E&M: [id number] Subs Hosp L2
--- NOTE | 2017-09-15 10:38 | PCM.PN.CARD ---
Subjectve: Patient seen and evaluated. Objective: Vital Signs Temp Pulse Resp BP Pulse Ox 98.7 F 79 16 95/64 100 09/15/17 05:00 09/15/17 10:00 09/15/17 10:00 09/15/17 10:00 09/15/17 10:00 Oxygen Delivery Method Room Air Weight: 261 lb 3.964 oz Body Mass Index (BMI) 37.5 Intake and Output for Last 24 Hours 09/13/17 09/14/17 09/15/17 23:59 23:59 23:59 Intake Total 2957 / 2957 4787.1 / 4787.1 782.7 / 782.7 Output Total 975 / 975 2049 / 2049 Balance 1981 / 1981 2737.1 / 2737.1 782.7 / 782.7 General: Awake, Alert, Oriented x 3 HEENT: PERRL, EOMI, Sclera Non Icteric Neck: Supple, Good ROM, No Lymph Node Enlargement Lungs: Clear to auscultation Cardiovascular: Regular Rhythm, Irregular Rhythm, Normal S1, Normal S2, No Rubs, No Gallops Vascular: No Carotid Bruits, Normal Femoral Pulses, Normal Radial Pulses, Normal Dorsalis Pedal Pulse, Normal Posterior Tibial Pulses Abdomen: Bowel Sounds Present, Soft, Non Tender, No HSM, No Organomegaly Extremities: No Cyanosis, No Clubbing, No edema Neurological: No Focal Motor or Sensory Deficit 09/15/17 05:40: WBC 13.3 H, RBC 2.73 L, Hgb 7.3 L, Hct 23.3 L, MCV 85.3, MCH 26.7 L, MCHC 31.3 L, RDW 18.2 H, RDW Differential 52.2 H, Plt Count 273, MPV 9.6, Neut % (Auto) Not Reportable, Absolute Neuts (auto) 11.7 H, Total Counted 100, Neutrophils % (Manual) 71 H, Band Neutrophils % 13 H, Lymphocytes % (Manual) 3 L, Monocytes % (Manual) 9, Metamyelocytes % 3 H, Myelocytes % 1 H 09/15/17 05:40: Sodium 138, Potassium 3.4 L, Chloride 105, Carbon Dioxide 25.0, Anion Gap 8, BUN 6 L, Creatinine 0.58 L, Est GFR (MDRD) Af Amer 185, Est GFR (MDRD) Non-Af 153, BUN/Creatinine Ratio 10.4, Glucose 125 H, Calcium 7.0 L 09/15/17 05:40: Magnesium 1.3 L Rhythm: EKG: ECHO: Stress Test: Cardiac Cath: PCI: CT Surgery: Holter monitor: EPS: PPM: CXR: Chest CT Scan: Medical Necessity - Tobacco Use Smoking Status: Former smoker Assessment/Plan 1. Atrial flutter with a rapid ventricular response rate He appears to be in atrial flutter. His ventricular response has improved with intravenous Cardizem which would be left on. He has been on Lovenox twice daily and my recommendation would be for him to remain on the same and for us to consider a DC cardioversion in a.m. He is rather anemic and this may affect the potential for him to remain in sinus rhythm due to heart rate response after he has been cardioverted. Above discussed with patient as well as physician emergency room physician assistant. Thank you for allowing me to participate in the care of your patient. Please don't hesitate to call if any issues arise
--- NOTE | 2017-09-15 10:42 | EKG12_ITS ---
Test Reason : ARRHYTHMIA Blood Pressure : / mmHG Vent. Rate : 074 BPM Atrial Rate : 296 BPM P-R Int : 000 ms QRS Dur : 090 ms QT Int : 382 ms P-R-T Axes : 248 -28 022 degrees QTc Int : 424 ms Atrial flutter Inferior infarct , age undetermined Anteroseptal infarct , age undetermined Abnormal ECG Confirmed by YIMI LANG, DACIA ([id number]), production editor SHIRA HINKLE ([id number]) on 09/18/2017 2:27:35 PM Referred By: YIMI Confirmed By:DACIA GELLER MD
--- NOTE | 2017-09-15 10:44 | PN.CARD_ITS ---
Subjectve: Patient seen and evaluated. Objective: Vital Signs Temp Pulse Resp BP Pulse Ox 98.7 F 79 16 95/64 100 09/15/17 05:00 09/15/17 10:00 09/15/17 10:00 09/15/17 10:00 09/15/17 10:00 Oxygen Delivery Method Room Air Weight: 261 lb 3.964 oz Body Mass Index (BMI) 37.5 Intake and Output for Last 24 Hours 09/13/17 09/14/17 09/15/17 23:59 23:59 23:59 Intake Total 2957 / 2957 4787.1 / 4787.1 782.7 / 782.7 Output Total 975 / 975 2049 / 2049 Balance 1981 / 1981 2737.1 / 2737.1 782.7 / 782.7 General: Awake, Alert, Oriented x 3 HEENT: PERRL, EOMI, Sclera Non Icteric Neck: Supple, Good ROM, No Lymph Node Enlargement Lungs: Clear to auscultation Cardiovascular: Regular Rhythm, Irregular Rhythm, Normal S1, Normal S2, No Rubs , No Gallops Vascular: No Carotid Bruits, Normal Femoral Pulses, Normal Radial Pulses, Normal Dorsalis Pedal Pulse, Normal Posterior Tibial Pulses Abdomen: Bowel Sounds Present, Soft, Non Tender, No HSM, No Organomegaly Extremities: No Cyanosis, No Clubbing, No edema Neurological: No Focal Motor or Sensory Deficit 09/15/17 05:40: WBC 13.3 H, RBC 2.73 L, Hgb 7.3 L, Hct 23.3 L, MCV 85.3, MCH 26.7 L, MCHC 31.3 L, RDW 18.2 H, RDW Differential 52.2 H, Plt Count 273, MPV 9.6 , Neut % (Auto) Not Reportable, Absolute Neuts (auto) 11.7 H, Total Counted 100 , Neutrophils % (Manual) 71 H, Band Neutrophils % 13 H, Lymphocytes % (Manual) 3 L, Monocytes % (Manual) 9, Metamyelocytes % 3 H, Myelocytes % 1 H 09/15/17 05:40: Sodium 138, Potassium 3.4 L, Chloride 105, Carbon Dioxide 25.0, Anion Gap 8, BUN 6 L, Creatinine 0.58 L, Est GFR (MDRD) Af Amer 185, Est GFR ( MDRD) Non-Af 153, BUN/Creatinine Ratio 10.4, Glucose 125 H, Calcium 7.0 L 09/15/17 05:40: Magnesium 1.3 L Rhythm: EKG: ECHO: Stress Test: Cardiac Cath: PCI: CT Surgery: Holter monitor: EPS: PPM: CXR: Chest CT Scan: Medical Necessity - Tobacco Use Smoking Status: Former smoker Assessment/Plan 1. Atrial flutter with a rapid ventricular response rate He appears to be in atrial flutter. His ventricular response has improved with intravenous Cardizem which would be left on. He has been on Lovenox twice daily and my recommendation would be for him to remain on the same and for us to consider a DC cardioversion in a.m. He is rather anemic and this may affect the potential for him to remain in sinus rhythm due to heart rate response after he has been cardioverted. Above discussed with patient as well as physician licensed physical therapy assistant. Thank you for allowing me to participate in the care of your patient. Please don't hesitate to call if any issues arise
[2017-09-15 11:51] LABS: Bedside Glucose 166 mg/dL (70-110)
[2017-09-15 15:51] LABS: Bedside Glucose 129 mg/dL (70-110)
[2017-09-15] MEDS: 0.9% Normal Saline 1,000 ML 50 ML IV (17:34)
[2017-09-15 23:11] LABS: Bedside Glucose 144 mg/dL (70-110)
[2017-09-16] VITALS (23 sets, daily range): BP systolic 91–120; BP diastolic 59–77; PULSE 73–93; RESP 13–18; TEMP 36.1–36.9; O2SAT 93–100
[2017-09-16] MEDS: oxyCODONE 5 MG Tablet 10 MG PO ×2 (00:23→13:50)
[2017-09-16 00:48] LABS: NRBC Flagged by Analyzer 0.8 % (0-5)
[2017-09-16 05:12] LABS: Absolute Lymphocyte Count 1.99 X10^3/ul (0.83-4.51); Basophil# 0.01 X10^3/uL; Basophil% 0.1 % (0-1); Eosinophil# 0.01 X10^3/uL; Eosinophils% 0.1 % (0-5); Hematocrit 25.8 % (40-54); Hemoglobin 8.3 g/dl (13.0-16.5); Lymphocyte # 1.99 X10^3/ul (4.0); Lymphocyte % 14.7 % (19-41); Mean Corp Hgb Conc 32.2 g/gl (32-36); Mean Corpuscular Hgb 27.9 pg (27.0-32.0); Mean Corpuscular Volume 86.6 fL (80-94); Mean Platelet Vol. 9.7 fl (6.2-12.0); Monocyte# 1.14 X10^3/uL; Monocyte% 8.4 % (0-10); Neutrophil # 10.03 X10^3/uL (2.7-7.7); Neutrophil % 74.3 % (47-70); Platelet Count 306 K/mm3 (150-450); RBC Distribution Width CV 18.4 % (11.6-14.6); Red Blood Count 2.98 M/mm3 (4.6-6.2); White Blood Count 13.5 K/mm3 (4.4-11.0)
[2017-09-16 05:18] LABS: Anion Gap 8 (5-15); BUN 6 mg/dL (7-18); BUN/Creat Ratio 9.4 RATIO (10-20); Calcium,Total 7.4 mg/dL (8.5-10.1); Chloride 102 mmol/L (98-107); Creatinine, Serum 0.64 mg/dL (0.70-1.30); EST Glomerular Filtration Rate 137 mL/min (>60); Est Glom Filt Rate - Afr Amer 166 mL/min (>60); Glucose 122 mg/dL (74-106); Magnesium 1.6 mg/dL (1.6-2.6); Potassium 3.7 mmol/L (3.5-5.1); Sodium Level 136 mmol/L (136-145)
[2017-09-16 05:33] LABS: Differential Indicated SCAN CRITERIA MET; POSITIVE COUNT YES; POSITIVE DIFFERENTIAL NO; POSITIVE MORPHOLOGY YES
[2017-09-16 05:35] LABS: NRBC Flagged by Analyzer 0.9 % (0-5)
[2017-09-16 05:36] LABS: Absolute Nucleated RBC Count 0.12 10^3/uL (0-5); Differential Comment SCANNED
[2017-09-16] MEDS: Nystatin Powder 15gm Bottle 1 APPLIC TOPICAL ×2 (05:51→13:50)
[2017-09-16 07:05] LABS: Bedside Glucose 121 mg/dL (70-110)
[2017-09-16 09:41] LABS: Pathologist Review Reviewed
[2017-09-16 09:42] LABS: Pathologist Review Reviewed
[2017-09-16] MEDS: Enoxaparin 120 MG/0.8 ML Syringe SC (09:55)
[2017-09-16 12:05] LABS: Bedside Glucose 106 mg/dL (70-110)
--- NOTE | 2017-09-16 12:21 | PCM.OP.BLANK ---
Operative Report Date of Procedure: 09/16/17 CONSCIOUS SEDATION REPORT DATE OF SERVICE: September 16, 2017 BRIEF HISTORY OF PRESENT ILLNESS: The patient is a 57-year-old male who initially presented to the emergency department on September 11 with lower extremity cellulitis. The patient's hospital course has been complicated by atrial flutter with rapid ventricular rate. The patient was evaluated by cardiology. Surface echocardiogram revealed evidence of diastolic dysfunction with an ejection fraction of 55%. He is currently anticoagulated on Lovenox. He denies any previous anesthetic complications. He has no known history of obstructive sleep apnea. The patient is a prior smoker. He does not currently utilize supplemental oxygen at his baseline. PHYSICAL EXAMINATION: VITAL SIGNS: Reviewed and were acceptable. GENERAL: The patient is an obese male, in no apparent distress, speaking in full sentences. HEENT: Normocephalic, atraumatic. Mucous membranes are moist and pink. Good mouth opening noted. Trachea is midline. Limited neck mobility. CHEST: S1, S2 irregularly irregular. No murmurs, rubs or gallops were noted. LUNGS: Diminished breath sounds bilaterally without appreciable wheezes, rales or rhonchi. ABDOMEN: Soft, nontender, nondistended. Positive bowel sounds. Obese. EXTREMITIES: There is lower extremity edema with left pretibial erythema ASA Class: II DESCRIPTION OF PROCEDURE: After confirmation of informed consent, the patient's anesthesia plan was reviewed in detail. Etomidate was chosen. Risks and benefits were reviewed and the patient agreed to proceed. At 1206, the patient was given his first bolus of etomidate. In total, the patient required 8 mg of etomidate to achieve an appropriate level of sedation. The patient was then given a 200 joule synchronized cardioversion by Dr. Holly at the bedside. This was successful in achieving normal sinus rhythm. The patient was monitored until 1217, at which time he reached his baseline mental status and function. The patient tolerated the procedure well. COMPLICATIONS: None ESTIMATED BLOOD LOSS: None RECOMMENDATIONS: Okay to recover in usual fashion. Code Visit 9xxxx: Other Procedure See Report - [id number] (>8 mins conscious sedation)
[2017-09-16] MEDS: DULoxetine Hcl 30 MG Capsule 90 MG PO (12:42)
[2017-09-16] MEDS: Gabapentin 600 MG Tablet PO ×2 (12:42→16:46)
[2017-09-16 13:56] LABS: Pathologist Review Reviewed
--- NOTE | 2017-09-16 15:32 | PCM.OP.BLANK ---
Operative Report Date of Procedure: 09/16/17 DC Cardioversion 57-year-old man with a history of persistent atrial flutter symptomatic. The patient was seen by Dr. Flores of the critical care division and after informed consent was obtained AP pads were applied. The patient was administered 7 mg of intravenous etomidate and then 200 J of synchronized DC cardioversion energy were applied with prompt reversal to sinus rhythm. Patient tolerated the procedure well. Conclusion: Successful DC cardioversion from atrial flutter to sinus rhythm.
--- NOTE | 2017-09-16 16:03 | PCM.PN.CARD ---
Subjectve: Patient seen and evaluated. Successfully underwent DC cardioversion this morning. Objective: Vital Signs Temp Pulse Resp BP Pulse Ox 98.1 F 93 13 108/65 100 09/16/17 11:00 09/16/17 15:12 09/16/17 13:45 09/16/17 13:45 09/16/17 13:45 Oxygen Delivery Method Room Air Weight: 261 lb 3.964 oz Body Mass Index (BMI) 37.5 Intake and Output for Last 24 Hours 09/14/17 09/15/17 09/16/17 23:59 23:59 23:59 Intake Total 4787.1 / 4787.1 3021.6 / 3021.6 718.2 / 718.2 Output Total 2049 / 2049 1175 / 1175 925 / 925 Balance 2737.1 / 2737.1 1846.6 / 1846.6 -206.8 / -206.8 General: Awake, Alert, Oriented x 3 HEENT: PERRL, EOMI, Sclera Non Icteric Neck: Supple, Good ROM, No Lymph Node Enlargement Lungs: Clear to auscultation Cardiovascular: Regular Rhythm, Normal S1, Normal S2, No Murmurs, No Rubs, No Gallops Vascular: No Carotid Bruits, Normal Femoral Pulses, Normal Radial Pulses, Normal Dorsalis Pedal Pulse, Normal Posterior Tibial Pulses Abdomen: Bowel Sounds Present, Soft, Non Tender, No HSM, No Organomegaly Extremities: No Cyanosis, No Clubbing, No edema Neurological: No Focal Motor or Sensory Deficit 09/15/17 05:40: Nucleated RBC % 0.8 09/16/17 04:45: WBC 13.5 H, RBC 2.98 L, Hgb 8.3 L, Hct 25.8 L, MCV 86.6, MCH 27.9, MCHC 32.2, RDW 18.4 H, RDW Differential 53.0 H, Plt Count 306, MPV 9.7, Immature Gran % (Auto) 2.400 H, Neut % (Auto) 74.3 H, Lymph % (Auto) 14.7 L, [place] % (Auto) 8.4, Eos % (Auto) 0.1, Baso % (Auto) 0.1, Absolute Neuts (auto) 10.0 H, Total Counted Not Reportable, Nucleated RBC % 0.9 09/16/17 04:45: Sodium 136, Potassium 3.7, Chloride 102, Carbon Dioxide 26.0, Anion Gap 8, BUN 6 L, Creatinine 0.64 L, Est GFR (MDRD) Af Amer 166, Est GFR (MDRD) Non-Af 137, BUN/Creatinine Ratio 9.4 L, Glucose 122 H, Calcium 7.4 L, Magnesium 1.6 Rhythm: EKG: ECHO: Stress Test: Cardiac Cath: PCI: CT Surgery: Holter monitor: EPS: PPM: CXR: Chest CT Scan: Medical Necessity - Tobacco Use Smoking Status: Former smoker Assessment/Plan 1. Atrial flutter with a rapid ventricular response rate He was in atrial flutter with a rapid ventricular response rate. He was started on intravenous Cardizem and then underwent DC cardioversion today. He has successfully converted to sinus rhythm and is maintaining sinus rhythm. He did receive a dose of intravenous amiodarone. My recommendation will be for him to continue on oral amiodarone 200 mg a day. He will continue the anticoagulation with the Lovenox as before. Thank you for allowing me to participate in the care of your patient. Please don't hesitate to call if any issues arise
--- NOTE | 2017-09-16 16:19 | PCM.DC ---
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) You will use the following diet at home:: Cardiac Your food should be the consistency of: Regular Your liquids should be the consistency of: Regular/Thin Discharge Activity: Return to Normal Activity Allergies/Adverse Reactions: Allergies Iodinated Contrast- Oral and IV Dye [DYEE] Adverse Reaction (Verified 09/11/17 16:42) Nausea Medications to take at Discharge Cholecalciferol (Vitamin D3) [Vitamin D3] 1,000 unit PO DAILY 09/11/17 Duloxetine Hcl [Cymbalta] 90 mg PO DAILY 09/11/17 Enoxaparin Sodium [Lovenox] 120 mg SQ Q12H 09/11/17 Gabapentin [Neurontin] 600 mg PO TIDCM 09/11/17 Loratadine [Claritin] 10 mg PO DAILY PRN PRN 09/11/17 Metformin HCl [Glucophage Xr] 750 mg PO DAILY 09/11/17 Methadone HCl 7.5 mg PO Q12H PRN 09/11/17 Ondansetron [Zofran] 8 mg PO Q8H PRN PRN 09/11/17 Oxycodone [Oxyir] 10 mg PO Q4H PRN PRN 09/11/17 Amiodarone HCl [Cordarone] 200 mg PO DAILY #30 tab 09/16/17 Amoxicillin/Potassium Clav [Augmentin 875-125 Tablet] 1 ea PO BID #10 tab 09/16/17 Nystatin Powder [Mycostatin Powder] 1 applic TOPICAL TID #0 bottle 09/16/17 Oxycodone [Oxyir] 10 mg PO Q4H PRN PRN #12 tablet 09/16/17 The following prescriptions were given: Amiodarone HCl [Cordarone] 200 mg PO DAILY #30 tab Amoxicillin/Potassium Clav [Augmentin 875-125 Tablet] 1 ea PO BID #10 tab Oxycodone [Oxyir] 10 mg PO Q4H PRN PRN #12 tablet PRN Reason: Pain Primary Care Physician: Dru Gao [Primary Care Provider] - Please follow up with your Primary Care Physician in: 1-2 weeks Please Follow Up With: Radha Sahu MD When: Keep your appointment this week Please Follow Up With: Hang Holly MD When: 1-2 weeks Proposed Discharge Date: 09/16/17
--- NOTE | 2017-09-16 16:19 | CASEMGMT ---
Completed healthcare POA and healthcare Living will with patient and his cousin. Copies made and one of each placed in his chart. SW also let him know [facility] will be calling him to set up a time to come to see him. WANDY also told him will let [facility] know patient is leaving today also. Willa SWAN
--- NOTE | 2017-09-16 16:20 | PCM.DC.SUM ---
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 Evidence of prior right upper lobe lung surgery. 2. No evidence of acute pulmonary disease. 3. Left jugular Port-A-Cath. CT/CTA Chest W/WO Contrast IMPRESSION: Bilateral pulmonary micronodules as detailed above, concerning for pulmonary metastatic disease. No evidence of PE or aortic dissection. No evidence of pneumonia. Right upper lobe scarring. Inferior endplate compression deformity of T12, appears chronic. US/Venous Duplex Imag/Erik Extrem IMPRESSION: Examination of the left lower extremity is markedly limited due to severe leg edema and a large tumor in the left groin. There is partial compressibility of the left common femoral vein, proximal and mid femoral vein and posterior tibial vein and noncompressibility of the left PT of vein. The distal superficial femoral vein and peroneal vein were not visualized. No evidence of DVT at the right lower extremity. Echo: Interpretation Summary Normal LV size. Left ventricular systolic function is normal. The estimated ejection fraction is 55 %. Transmitral diastolic flow velocities suggest mild (stage 1) diastolic dysfunction (reversed pattern). Structurally normal valves. Consultations Cardiology - [facility] - [facility] 09/11/17 20:50 Consult: Onc/Wound/mold capper helper Routine Comment: Reason for Consult:: Left groin large abrasion at the cancer site. Operations: None Procedures: 2-D Echocardiogram, Cardioversion Summary of Care Provided: Physical exam on day of discharge: General: Resting comfortably NAD Psych: A/Ox3 normal affect HEENT: CARMELA AT NC Neck: Supple NT CV: RRR no m/t/r/g/h Resp: CTA Abd: [id number] Soft NT no guarding or rigidity Ext: DP2+= erythema significantly improved and receding away from the edges, he still has significant 2-3+ pitting edema in the left lower extremity. Is nontender. There is mildly increased warmth. Skin: W/D normal turgor Lymph/Heme: No active bleeding or adenopathy Neuro: CN2-12 intact Hospital course: The patient is a 57 year old M who presented to the emergency room with swelling, warmth, pain of his left lower extremity. He has a medical history of stage IV liposarcoma with a tumor in the left groin with known metastases to the lungs, patient of Dr. Melton who is undergoing chemotherapy as an outpatient, he also has a history of type 2 diabetes, he has no DVTs of his left lower extremity for which she is on outpatient home Lovenox injections, his chronic anemia, and obesity. He appeared to be in severe sepsis from left lower extremity cellulitis as evidenced by elevated lactic acid, leukocytosis, and significant tachycardia with rates into the 150s. EKG demonstrated SVT. This was initially felt to be secondary to sepsis. He was admitted and started on Unasyn for cellulitis of the lower extremity. He responded well to this therapy. He was persistently tachycardic and was started on diltiazem and then later digoxin as his blood pressure was somewhat low. He initially responded to this however when his rate was more controlled he appeared to be in atrial flutter on the monitor and his SVT recurred. Cardiology was consulted and restarted him on Cardizem and digoxin. We also performed an echocardiogram which demonstrated preserved EF at 55% with stage I diastolic dysfunction, PAS P of 31 mmHg, and mild TVI. He remained stable over the weekend with continued improvement in his cellulitis and on Saturday he was successfully cardioverted per cardiology. They then provided him with amiodarone IV followed by recommending outpatient therapy with oral amiodarone. He will continue Lovenox for DVTs. He will have 5 more days of Augmentin to take as an outpatient. We recommended he also follow-up with the wound care center for his lymphedema, swelling, cellulitis, DVTs of his lower extremity. He will also need to keep his appointment with Dr. Sahu this week for planning his further chemotherapy as an outpatient. He will also need follow-up with cardiology and his PCP. Discharged home in stable condition with home health services. This patient was seen by Scooter Winter PA-C under the supervision of Doctor Pancho. [] Discharge Diet: Low fat/ Low Cholesterol, 1800 Calorie Control Diet, 2000 mg Sodium Diet Discharge Activity: Return to Normal Activity Home Medications: Medications to take at Discharge Cholecalciferol (Vitamin D3) [Vitamin D3] 1,000 unit PO DAILY 09/11/17 Duloxetine Hcl [Cymbalta] 90 mg PO DAILY 09/11/17 Enoxaparin Sodium [Lovenox] 120 mg SQ Q12H 09/11/17 Gabapentin [Neurontin] 600 mg PO TIDCM 09/11/17 Loratadine [Claritin] 10 mg PO DAILY PRN PRN 09/11/17 Metformin HCl [Glucophage Xr] 750 mg PO DAILY 09/11/17 Methadone HCl 7.5 mg PO Q12H PRN 09/11/17 Ondansetron [Zofran] 8 mg PO Q8H PRN PRN 09/11/17 Oxycodone [Oxyir] 10 mg PO Q4H PRN PRN 09/11/17 Amiodarone HCl [Cordarone] 200 mg PO DAILY #30 tab 09/16/17 Amoxicillin/Potassium Clav [Augmentin 875-125 Tablet] 1 ea PO BID #10 tab 09/16/17 Nystatin Powder [Mycostatin Powder] 1 applic TOPICAL TID #0 bottle 09/16/17 Oxycodone [Oxyir] 10 mg PO Q4H PRN PRN #12 tablet 09/16/17 Following Prescrptions Were Given to Patient: Amiodarone HCl [Cordarone] 200 mg PO DAILY #30 tab Amoxicillin/Potassium Clav [Augmentin 875-125 Tablet] 1 ea PO BID #10 tab Oxycodone [Oxyir] 10 mg PO Q4H PRN PRN #12 tablet PRN Reason: Pain Primary Care Physician: Dru Gao [Primary Care Provider] - Please follow up with your Primary Care Physician in: 1-2 weeks Please Follow Up With: Radha Sahu MD When: Keep your appointment this week Please Follow Up With: Hang Holly MD When: 1-2 weeks Please Follow Up With: Miguel[facility] - Leg cellulitis When: 1 week Disposition: Home with Home Health Minutes spent on discharge:: 40 Patient Condition:: Stable Medical Necessity - Tobacco Use Smoking Status: Former smoker Meaningful Use Info Meaningful Use Diagnoses (Choose all that apply): None applicable <Irvin Deleon - Last Filed: 09/16/17 16:42> Discharge Date and Diagnosis - Primary Discharge Diagnosis Active and Suspected Problems Tachycardia (Acute) Severe sepsis (Acute) Left leg cellulitis (Acute) - Secondary Discharge Diagnosis Chronic Problems Chronic anemia (Chronic) Type 2 diabetes mellitus (Chronic) 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 Summary of Care Provided: This patient was seen in conjunction with Scooter GARRETT. I have independently interviewed and examined the patient and reviewed pertinent history, examination findings, laboratory and plan of management. I have reviewed the note and agree with the documented findings with the few additional points. In brief, patient is admitted for left lower leg cellulitis, complicated in view of history of liposarcoma stage IV with history of radiation and DVT on Lovenox. Patient also had A. fib/flutter with 3 to 1 conduction for which patient was cardioverted today under conscious sedation. Patient tolerated to normal sinus rhythm. Was recommended discharge on oral amiodarone and 5 more days of Augmentin. Continue Lovenox. Follow-up with oncologist as mentioned above I have discussed my assessment with Scooter GARRETT and orders have been reviewed. Total time spent, exact 35 minutes on discharge meds reconciliation, examination, review of imaging and blood test and discussion with the patient on follow-up instructions. Clinical Impression(s) from Imaging Studies Chest X-Ray 09/11/17 16:58 IMPRESSION: 1. Evidence of prior right upper lobe lung surgery. 2. No evidence of acute pulmonary disease. 3. Left jugular Port-A-Cath. Venous Duplex 09/11/17 17:47 IMPRESSION: Examination of the left lower extremity is markedly limited due to severe leg edema and a large tumor in the left groin. There is partial compressibility of the left common femoral vein, proximal and mid femoral vein and posterior tibial vein and noncompressibility of the left PT of vein. The distal superficial femoral vein and peroneal vein were not visualized. No evidence of DVT at the right lower extremity. Chest CTA 09/11/17 18:30 IMPRESSION: Bilateral pulmonary micronodules as detailed above, concerning for pulmonary metastatic disease. No evidence of PE or aortic dissection. No evidence of pneumonia. Right upper lobe scarring. Inferior endplate compression deformity of T12, appears chronic. Code Visit Inpatient E&M: [id number] Disch Hosp
--- NOTE | 2017-09-16 16:21 | CASEMGMT ---
SW called [facility] in [place] and let them know patient is being d/c today. SW also called [facility] and let them know patient is being d/c today. SW will have d/c instructions faxed to both agencies once completed. Plan: Home with resumption of waiver aide services through [facility] and skilled home health through [facility]. Willa MOORE MSW
--- NOTE | 2017-09-16 16:29 | DS.PCM_ITS ---
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 Evidence of prior right upper lobe lung surgery. 2. No evidence of acute pulmonary disease. 3. Left jugular Port-A-Cath. CT/CTA Chest W/WO Contrast IMPRESSION: Bilateral pulmonary micronodules as detailed above, concerning for pulmonary metastatic disease. No evidence of PE or aortic dissection. No evidence of pneumonia. Right upper lobe scarring. Inferior endplate compression deformity of T12, appears chronic. US/Venous Duplex Imag/Erik Extrem IMPRESSION: Examination of the left lower extremity is markedly limited due to severe leg edema and a large tumor in the left groin. There is partial compressibility of the left common femoral vein, proximal and mid femoral vein and posterior tibial vein and noncompressibility of the left PT of vein. The distal superficial femoral vein and peroneal vein were not visualized. No evidence of DVT at the right lower extremity. Echo: Interpretation Summary Normal LV size. Left ventricular systolic function is normal. The estimated ejection fraction is 55 %. Transmitral diastolic flow velocities suggest mild (stage 1) diastolic dysfunction (reversed pattern). Structurally normal valves. Consultations Cardiology - [facility] Oncology - [facility] 09/11/17 20:50 Consult: Onc/Wound/seamer Routine Comment: Reason for Consult:: Left groin large abrasion at the cancer site. Operations: None Procedures: 2-D Echocardiogram, Cardioversion Summary of Care Provided: Physical exam on day of discharge: General: Resting comfortably NAD Psych: A/Ox3 normal affect HEENT: [place] AT NC Neck: Supple NT CV: RRR no m/t/r/g/h Resp: CTA Abd: [id number] Soft NT no guarding or rigidity Ext: DP2+= erythema significantly improved and receding away from the edges, he still has significant 2-3+ pitting edema in the left lower extremity. Is nontender. There is mildly increased warmth. Skin: W/D normal turgor Lymph/Heme: No active bleeding or adenopathy Neuro: CN2-12 intact Hospital course: The patient is a 57 year old M who presented to the emergency room with swelling , warmth, pain of his left lower extremity. He has a medical history of stage IV liposarcoma with a tumor in the left groin with known metastases to the lungs , patient of Dr. Melton who is undergoing chemotherapy as an outpatient, he also has a history of type 2 diabetes, he has no DVTs of his left lower extremity for which she is on outpatient home Lovenox injections, his chronic anemia, and obesity. He appeared to be in severe sepsis from left lower extremity cellulitis as evidenced by elevated lactic acid, leukocytosis, and significant tachycardia with rates into the 150s. EKG demonstrated SVT. This was initially felt to be secondary to sepsis. He was admitted and started on Unasyn for cellulitis of the lower extremity. He responded well to this therapy. He was persistently tachycardic and was started on diltiazem and then later digoxin as his blood pressure was somewhat low. He initially responded to this however when his rate was more controlled he appeared to be in atrial flutter on the monitor and his SVT recurred. Cardiology was consulted and restarted him on Cardizem and digoxin. We also performed an echocardiogram which demonstrated preserved EF at 55% with stage I diastolic dysfunction, PAS P of 31 mmHg, and mild TVI. He remained stable over the weekend with continued improvement in his cellulitis and on Saturday he was successfully cardioverted per cardiology. They then provided him with amiodarone IV followed by recommending outpatient therapy with oral amiodarone. He will continue Lovenox for DVTs. He will have 5 more days of Augmentin to take as an outpatient. We recommended he also follow-up with the wound care center for his lymphedema, swelling, cellulitis, DVTs of his lower extremity. He will also need to keep his appointment with Dr. Sahu this week for planning his further chemotherapy as an outpatient. He will also need follow-up with cardiology and his PCP. Discharged home in stable condition with home health services. This patient was seen by Scooter Winter PA-C under the supervision of Doctor Pancho. [] Discharge Diet: Low fat/ Low Cholesterol, 1800 Calorie Control Diet, 2000 mg Sodium Diet Discharge Activity: Return to Normal Activity Home Medications: Medications to take at Discharge Cholecalciferol (Vitamin D3) [Vitamin D3] 1,000 unit PO DAILY 09/11/17 Duloxetine Hcl [Cymbalta] 90 mg PO DAILY 09/11/17 Enoxaparin Sodium [Lovenox] 120 mg SQ Q12H 09/11/17 Gabapentin [Neurontin] 600 mg PO TIDCM 09/11/17 Loratadine [Claritin] 10 mg PO DAILY PRN PRN 09/11/17 Metformin HCl [Glucophage Xr] 750 mg PO DAILY 09/11/17 Methadone HCl 7.5 mg PO Q12H PRN 09/11/17 Ondansetron [Zofran] 8 mg PO Q8H PRN PRN 09/11/17 Oxycodone [Oxyir] 10 mg PO Q4H PRN PRN 09/11/17 Amiodarone HCl [Cordarone] 200 mg PO DAILY #30 tab 09/16/17 Amoxicillin/Potassium Clav [Augmentin 875-125 Tablet] 1 ea PO BID #10 tab Nystatin Powder [Mycostatin Powder] 1 applic TOPICAL TID #0 bottle 09/16/17 Oxycodone [Oxyir] 10 mg PO Q4H PRN PRN #12 tablet 09/16/17 Following Prescrptions Were Given to Patient: Amiodarone HCl [Cordarone] 200 mg PO DAILY #30 tab Amoxicillin/Potassium Clav [Augmentin 875-125 Tablet] 1 ea PO BID #10 tab Oxycodone [Oxyir] 10 mg PO Q4H PRN PRN #12 tablet PRN Reason: Pain Primary Care Physician: Dru Gao [Primary Care Provider] - Please follow up with your Primary Care Physician in: 1-2 weeks Please Follow Up With: Radha Sahu MD When: Keep your appointment this week Please Follow Up With: Hang Holly MD When: 1-2 weeks Please Follow Up With: [facility] - Leg cellulitis When: 1 week Disposition: Home with Home Health Minutes spent on discharge:: 40 Patient Condition:: Stable Medical Necessity - Tobacco Use Smoking Status: Former smoker Meaningful Use Info Meaningful Use Diagnoses (Choose all that apply): None applicable <Irvin Deleon - Last Filed: 09/16/17 16:42> Discharge Date and Diagnosis - Primary Discharge Diagnosis Active and Suspected Problems Tachycardia (Acute) Severe sepsis (Acute) Left leg cellulitis (Acute) - Secondary Discharge Diagnosis Chronic Problems Chronic anemia (Chronic) Type 2 diabetes mellitus (Chronic) 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 Summary of Care Provided: This patient was seen in conjunction with Scooter GARRETT. I have independently interviewed and examined the patient and reviewed pertinent history, examination findings, laboratory and plan of management. I have reviewed the note and agree with the documented findings with the few additional points. In brief, patient is admitted for left lower leg cellulitis, complicated in view of history of liposarcoma stage IV with history of radiation and DVT on Lovenox. Patient also had A. fib/flutter with 3 to 1 conduction for which patient was cardioverted today under conscious sedation. Patient tolerated to normal sinus rhythm. Was recommended discharge on oral amiodarone and 5 more days of Augmentin. Continue Lovenox. Follow-up with oncologist as mentioned above I have discussed my assessment with Scooter GARRETT and orders have been reviewed. Total time spent, exact 35 minutes on discharge meds reconciliation, examination , review of imaging and blood test and discussion with the patient on follow-up instructions. Clinical Impression(s) from Imaging Studies Chest X-Ray 09/11/17 16:58 IMPRESSION: 1. Evidence of prior right upper lobe lung surgery. 2. No evidence of acute pulmonary disease. 3. Left jugular Port-A-Cath. Venous Duplex 09/11/17 17:47 IMPRESSION: Examination of the left lower extremity is markedly limited due to severe leg edema and a large tumor in the left groin. There is partial compressibility of the left common femoral vein, proximal and mid femoral vein and posterior tibial vein and noncompressibility of the left PT of vein. The distal superficial femoral vein and peroneal vein were not visualized. No evidence of DVT at the right lower extremity. Chest CTA 09/11/17 18:30 IMPRESSION: Bilateral pulmonary micronodules as detailed above, concerning for pulmonary metastatic disease. No evidence of PE or aortic dissection. No evidence of pneumonia. Right upper lobe scarring. Inferior endplate compression deformity of T12, appears chronic. Code Visit Inpatient E&M: 96245 Disch Hosp
--- NOTE | 2017-09-16 16:31 | CASEMGMT ---
D/C instructions faxed to [facility] and [facility]. also faxed d/c instructions to the [facility]. Willa MOORE MSW
[2017-09-16] MEDS: Glucerna Shake 120 ML LIQUID PO (16:46)
[2017-09-16] MEDS: Amiodarone 200 MG Tablet PO (16:46)
[2017-09-16] MEDS: Acetaminophen 325 MG Tablet 650 MG PO (16:47)
[2017-09-16 16:56] LABS: Bedside Glucose 171 mg/dL (70-110)
[2017-09-16] MEDS: 0.9% NaCl VAD Flush 10 ML IV (17:41)
--- NOTE | 2017-09-17 15:44 | CASEMGMT ---
Wandy received a call from Maegan at [place]. She did not get patient's d/c stuff until today. WANDY told her nursing, PT, and OT was set up through [facility]. She was going to call [facility] and have the services changed to them. WANDY received a call from patient's cousin, Barbra. She said patient is not doing well at home. She said he cannot even get up from the couch. She said he needs to go to a detention. WANDY told her to call home health and his PCP to see if they can help and if not she may have to take him to the ER. She said she will have him go to [facility] as it is closer. Willa MOORE MSW
== END 2017-09-16 17:50 | disposition home health service (06) | DRG 872 ==
LOC: ED 17:36 → PCU 19:54
PROVIDERS: Hospitalist; Physician Assistant; Admitting Provider Internal Medicine; Emergency Provider Emergency Medicine; Family Provider Family Medicine; PCP Family Medicine
DX: A41.9 Sepsis, unspecified organism (principal); L03.116 Cellulitis of left lower limb; C49.9 Malignant neoplasm of connective and soft tissue, unspecified; C78.00 Secondary malignant neoplasm of unspecified lung; I48.92 Unspecified atrial flutter; I47.1 Supraventricular tachycardia; E87.1 Hypo-osmolality and hyponatremia; L30.4 Erythema intertrigo; B95.5 Unspecified streptococcus as the cause of diseases classified elsewhere; R65.20 Severe sepsis without septic shock; E11.9 Type 2 diabetes mellitus without complications; F32.9 Major depressive disorder, single episode, unspecified; D64.81 Anemia due to antineoplastic chemotherapy; D63.0 Anemia in neoplastic disease; Z79.01 Long term (current) use of anticoagulants; Z87.891 Personal history of nicotine dependence; Z86.718 Personal history of other venous thrombosis and embolism
CPT/HCPCS: 36591; 71045; 71275; 80048; 81001; 82436; 82570; 82962; 83540; 83550; 83605; 83735; 83930; 83935; 84300; 84443; 84484; 85025; 85610; 86850; 86900; 86920; 86922; 87040; 87070; 87086; 87205; 87641; 93005; 93306; 93970; 94762; 97110; 97162; 97166; 97530; 97802; 99282; J7030; J7040; J7120; P9016; Q9957; Q9967; A4216; J0295